=== PATIENT | male | born 1950 | race Caucasian/White ===

== ENCOUNTER 2024-03-13 08:04 | Day surgery (SDC) | payer OTHER, SELFPAY ==
--- NOTE | 2024-03-13 | PATH_ITS ---
[facility] Accession Number: [id number] No. of containers..02 Tissue . 01 Material submitted: . PART A: colon - ASCENDING POLYP PART B: rectum - RECTAL POLYP . 01 Diagnosis: A. ASCENDING COLON, POLYPECTOMY: Tubular adenoma. - B. RECTUM, POLYPECTOMY: Hyperplastic polyp. [facility] 03/17/2024 1550 Local . 01 Electronically signed: . Sue Ramon MD, Pathologist NPI- [id number] . 01 Gross description: . Part A: ASCENDING POLYP: Received in formalin is 1 fragment(s) of guzman, soft tissue measuring 0.5 x 0.3 x 0.3 cm submitted entirely in 1 cassette(s) Part B: RECTAL POLYP: Received in formalin is 1 fragment(s) of guzman, soft tissue measuring 0.2 x 0.2 x 0.2 cm submitted entirely in 1 cassette(s) /WIL 03/14/2024 2335 Local . 01 Pathologist provided ICD-10: Z12.11 . 01 CPT . 523658, 610649 Specimen Comment: A courtesy copy of this report has been sent to [phone] Performed at: [address] [facility] [address], [place], [place] [id number] MD Oziel Zamora MD Phone: [phone]
[2024-03-13 08:34] VITALS: BP 158/99; PULSE 106; RESP 16; TEMP 36.6; O2SAT 98
[2024-03-13 09:00] VITALS: BP 117/76; PULSE 97; RESP 18; TEMP 36.6; O2SAT 94
--- NOTE | 2024-03-13 09:15 | P.HP_ITS ---
History of Present Illness History of Present Illness Date Patient Seen: 03/13/24 Time Patient Seen: 09:15 Chief complaint: Screening Colonoscopy Narrative: Marco is a 73-year-old man who presents for a colonoscopy. His last one was 10 or 12 years ago. No family history of colon cancer. [facility] Medical History (Updated 03/13/24 @ 09:15 by Fareed Richards MD) Hx of renal calculi Hx of gastroesophageal reflux (GERD) Hx of low back pain Hx of chronic arthritis Hx of sleep apnea History of high cholesterol Hx of primary hypertension Surgical History (Updated 03/13/24 @ 08:42 by Jeanine Skelton RN) History of ankle surgery (~2000) History of back surgery (~2021) Hx of hernia repair (~2015) Social History Smoking Status: Former smoker alcohol intake: current Meds Home Medications and Allergies Home Medications Medication Instructions Recorded Confirmed Type sodium,potassium,mag sulfates 17.5 See Rx Instructions PO .COMPLEX 02/05/24 Rx gram-3.13 gram-1.6 gram oral soln #354 mL (Suprep Bowel Prep Kit) acetaminophen 500 mg capsule 1,000 mg PO QID PRN Pain (Scale 03/13/24 03/13/24 History Score 1-3) amlodipine 5 mg tablet 5 mg PO DAILY 03/13/24 03/13/24 History atorvastatin 40 mg tablet 40 mg PO DAILY 03/13/24 03/13/24 History fluticasone propionate 50 1 spray intranasal DAILY 03/13/24 03/13/24 History mcg/actuation nasal spray,suspension gabapentin 300 mg capsule 300 mg PO 03/13/24 History losartan 50 mg tablet 50 mg PO DAILY 03/13/24 03/13/24 History methocarbamol 500 mg tablet 500 - 1,000 mg PO Q6H PRN Muscle 03/13/24 03/13/24 History Spasm pantoprazole 40 mg tablet,delayed 40 mg PO DAILY 03/13/24 03/13/24 History release tamsulosin 0.4 mg capsule 0.4 mg PO BEDTIME 03/13/24 03/13/24 History tizanidine 2 mg tablet 4 mg PO BID 03/13/24 03/13/24 History trazodone 100 mg tablet 100 mg PO ONCE PM PRN insomnia 03/13/24 03/13/24 History Allergies Allergy/AdvReac Type Severity Reaction Status Date / Time No Known Drug Allergies Allergy Verified 03/13/24 08:42 Exam Vital Signs (past 8 hours): - 03/13/24 08:34 Temperature 97.8 F Pulse Rate 106 H Respiratory Rate 16 Blood Pressure 158/99 H Pulse Oximetry 98 Oxygen Delivery Method Room Air Oxygen Delivery Method Room Air Const General: No acute distress Resp Effort & Inspection: normal respiratory effort Assessment & Plan Assessment and plan (1) Colon cancer screening: Status: Acute Plan Colonoscopy Time-Based Coding :: [TOTAL MINUTES] spent with patient and on the chart (including review of chart, obtaining history, exam, reviewing outside data, placing orders, documenting exam and treatment plan, and counseling patient) on [DATE].
--- NOTE | 2024-03-13 09:56 | PM.OP.COLON ---
Operative Date/Time/Diagnoses Date of procedure: 03/13/24 Time of procedure: 09:56 Pre-op diagnosis: Colon cancer screening Post-op diagnosis: same Procedure & Clinicians Study performed: Colonoscopy Same procedure as scheduled: Yes Surgeon: Fareed Richards Procedure Notes Procedure in detail: Surgeon: Fareed Richards MD Anesthesia: Lainey Mata CRNA Procedure: The patient was brought to the endoscopy suite, placed in left lateral decubitus position. The patient was connected to monitoring devices. A time-out was performed. Sedation was administered. Once the patient was adequately sedated, a digital rectal exam was performed and was normal. The scope was then inserted and advanced to the cecum where the appendiceal orifice was identified and photographed. The scope was then slowly withdrawn over greater than 6 minutes. The mucosa was thoroughly inspected. There was a 7 mm polyp in the ascending colon removed with a cold snare. There was a 5 mm polyp in the rectum removed with a cold snare. The scope was retroflexed in the rectum. No other abnormalities were found. The scope was straightened and removed. The patient was awakened and brought to recovery. Scope withdrawal time: 12 minutes Sedation time: 16 minutes EBL: 3 mL Findings: Small polyps in the ascending colon and rectum Post-procedure Disposition: PACU
[2024-03-13 09:57] VITALS: BP 121/86; PULSE 86; RESP 15; TEMP 36.6; O2SAT 95
[2024-03-13 10:04] VITALS: BP 105/76; PULSE 89; RESP 16; TEMP 36.6; O2SAT 96
== END 2024-03-13 10:20 | disposition home or self-care (01) ==
PROVIDERS: Family Provider Urology; PCP Internal Medicine; Referring Provider Surgery; Visit Provider Surgery
PROC: 0DJD8ZZ Inspection of Lower Intestinal Tract, Via Natural or Artificial Opening Endoscopic (ICD-10-PCS; CPT 45378; principal; 2024-03-13 09:15)
DX: Z12.11 Encounter for screening for malignant neoplasm of colon (principal); D12.2 Benign neoplasm of ascending colon; K62.1 Rectal polyp
CPT/HCPCS: 45385; J2704

== ENCOUNTER 2024-08-25 16:11 | Inpatient (IN) | payer OTHER, SELFPAY ==
[2024-08-25] VITALS (19 sets, daily range): BP systolic 155–194; BP diastolic 100–124; PULSE 94–118; RESP 11–30; TEMP 36.5; O2SAT 94–99; BMI 27.3
--- NOTE | 2024-08-25 16:20 | PC.NURSE ---
Pt srrived to ED via [facility] for back pain, general malaise and burning with urination. Pt states that he was tx for UTI and took his entire course of abx but it still having sx of burning with urination, increased frequency and the feeling of not being able to empty his bladder completely. Pt supposed to see doctor today for back injections, but doctor did not want to do them because pt's bp elevated and pt not feeling well. Pt a&Ox4.
[2024-08-25 16:34] LABS: Appearance Urine UA CLEAR; Bilirubin Urine UA NEGATIVE (NEGATIVE); Color Urine UA YELLOW; Glucose Urine UA NEGATIVE (Negative); Ketones Urine UA NEGATIVE (NEGATIVE); Leukocyte Esterase Urine UA NEGATIVE (NEGATIVE); Nitrite Urine UA NEGATIVE (Negative); Occult Blood Urine UA NEGATIVE (Negative); Protein Urine UA NEGATIVE (Negative); Specific Gravity Urine UA 1.015 (1.000-1.035); Urobilinogen Urine UA 0.2 E.U./dL (0.2)
[2024-08-25 16:46] LABS: Bacteria Urine Occasional (0-1); RBC Urine 0-1/HPF (0-5/HPF); Squamous Epithelial Cell Urine 0-1 /HPF (0-5/HPF); Urine Volume 10mL (spun); WBC Urine 0-1/HPF (0-5/HPF)
[2024-08-25 16:47] LABS: Culture Indicated Urine Cult Not Indicated
--- NOTE | 2024-08-25 17:41 | PC.NURSE ---
Pt ambulated to bathroom independently and with steady gait. States that he does not feel well after ambulating. States that he feels dizzy and like he has the chills. Pt hypertensive and tachy with HR in 110s. A&Ox4. notified.
--- NOTE | 2024-08-25 17:46 | DI.CT.S_ITS ---
PROCEDURE: CT ABDOMEN PELVIS W CON INDICATIONS: abd pain, distension TECHNIQUE: After the administration of intravenous contrast, axial sections acquired from the lung bases to the pubic symphysis. Coronal and sagittal reformats were performed. For radiation dose reduction, the following was used: automated exposure control, adjustment of mA and/or kV according to patient size. COMPARISON: None. FINDINGS: Image quality: Diagnostic. Lower Chest: No significant findings. ABDOMEN: Liver: Focus of heterogeneous enhancement in the right dome. Multiple small hepatic cysts. Gallbladder: No radiopaque gallstones or wall thickening. Biliary ducts: No biliary dilation. Pancreas: No ductal dilation. Spleen: Size is within normal limits. Adrenal Glands: No adrenal nodules. Kidneys and Ureters: No hydronephrosis. Small nonobstructing kidney stones. Mid left kidney heterogeneous mass measuring 5.2 cm, (2/50). Stomach and Bowel: Diverticulosis. No diverticulitis identified. Normal appendix. No small bowel obstruction. Fluid-filled loops of small bowel. Stomach is within normal limits. Peritoneum: No abnormal intraperitoneal fluid. No free air. Ventral Wall: No significant ventral hernia. Abdominal Nodes: No retroperitoneal or mesenteric adenopathy by size criteria. Vessels: Abdominal aortic aneurysm measuring 4.9 cm, (4/53), previously 2.3 cm in 2014. PELVIS: Pelvic Organs: Prostatomegaly. Bladder: No bladder wall thickening. No stone. Pelvic Nodes: No enlarged lymph nodes. Miscellaneous: No inguinal hernias are seen. Hydroceles. Bones: No aggressive osseous abnormality. L3-L5 pedicle screw fixation with intervertebral body spacers. Multilevel DDD. IMPRESSION: 1. Fluid-filled loops of small bowel. This raises the possibility of an enteritis. No small bowel obstruction. No free fluid. 2. Mid left kidney mass measuring 5.2 cm. Consistent with renal cell carcinoma until proven otherwise. -Renal MRI may be helpful for further characterization. 3. Abdominal aortic aneurysm measuring 4.9 cm. Not present in 2014. -Recommend vascular surgery consultation. 4. Focus of heterogeneous enhancement at the right liver. This could represent a perfusion abnormality or hemangioma. Less likely metastatic disease. 5. Small nonobstructing kidney stones. Dictated by: Tho Huang M.D. on 08/25/2024 at 19:36 Approved by: Tho Huang M.D. on 08/25/2024 at 19:46
--- NOTE | 2024-08-25 17:48 | ED.GENADULT ---
HPI - General Adult <Jayda Kruger MD - Last Filed: 08/25/24 22:04> General Chief complaint: Urogenital-Male Stated complaint: Feels run down Time Seen by Provider: 08/25/24 17:45 Source: patient and EMS Mode of arrival: EMS History of Present Illness HPI narrative: Patient is a 73-year-old male with history of BILL, hypertension, hyperlipidemia, GERD, nephrolithiasis, presenting with abdominal pain, dysuria, and feeling generally unwell. Patient states that he has felt like maybe he has a fever although never actually has a temperature does also endorse some chills. He is endorsing nausea without vomiting. Has been eating and drinking normally. He states that he thought he passed a stone however continued to have abdominal discomfort and dysuria. Patient denies any chest pain or shortness of breath. Related Data Home Medications ?Medication ?Instructions ?Recorded ?Confirmed acetaminophen 500 mg capsule 1,000 mg PO QID PRN Pain (Scale 03/13/24 08/26/24 Score 1-3) atorvastatin 40 mg tablet 40 mg PO DAILY 03/13/24 08/26/24 fluticasone propionate 50 1 spray intranasal DAILY 03/13/24 08/26/24 mcg/actuation nasal spray,suspension gabapentin 300 mg capsule 600 mg PO BEDTIME 03/13/24 08/26/24 losartan 50 mg tablet 50 mg PO DAILY 03/13/24 08/26/24 methocarbamol 500 mg tablet 500 - 1,000 mg PO Q6H PRN Muscle 03/13/24 08/26/24 Spasm pantoprazole 40 mg tablet,delayed 40 mg PO DAILY 03/13/24 08/26/24 release tamsulosin 0.4 mg capsule 0.4 mg PO BEDTIME 03/13/24 08/26/24 tizanidine 2 mg tablet 4 mg PO BID 03/13/24 08/26/24 trazodone 100 mg tablet 100 mg PO ONCE PM PRN insomnia 03/13/24 08/26/24 Allergies Allergy/AdvReac Type Severity Reaction Status Date / Time No Known Drug Allergies Allergy Verified 08/26/24 08:36 Review of Systems <Jayda Kruger MD - Last Filed: 08/25/24 22:04> Constitutional Constitutional: Reports chills and Reports fatigue Eyes Eyes: Denies diplopia ENT Ears, Nose, Mouth, and Throat: Denies dizziness Cardiovascular Cardiovascular: Denies lightheadedness Gastrointestinal Gastrointestinal: Denies change in bowel habits Genitourinary Genitourinary: Reports difficulty urinating and Reports dysuria Musculoskeletal Musculoskeletal: Denies arthralgias Neurologic Neurologic: Denies dizziness Psychiatric Psychiatric: Denies suicidal ideation Endocrine Endocrine: Reports fatigue Patient History <Jayda Kruger MD - Last Filed: 08/25/24 22:04> Medical History (Updated 08/26/24 @ 01:19 by Chirag Bryant MD) Hx of renal calculi Hx of gastroesophageal reflux (GERD) Hx of low back pain Hx of chronic arthritis Hx of sleep apnea History of high cholesterol Hx of primary hypertension Surgical History (Updated 03/13/24 @ 08:42 by Jeanine Skelton RN) History of ankle surgery (~2000) History of back surgery (~2021) Hx of hernia repair (~2015) Social History household members: spouse Smoking Status: Former smoker alcohol intake: current Exam <Jayda Kruger MD - Last Filed: 08/25/24 22:04> Initial Vital Signs Initial Vital Signs: Vital Signs Temperature 97.7 F 08/25/24 16:13 Pulse Rate 94 H 08/25/24 16:13 Respiratory Rate 18 08/25/24 16:13 Blood Pressure 155/104 H 08/25/24 16:13 Pulse Oximetry 99 08/25/24 16:13 Oxygen Delivery Method Room Air 08/25/24 16:13 <Chirag Bryant MD - Last Filed: 08/26/24 15:21> Initial Vital Signs Initial Vital Signs: Vital Signs Temperature 97.7 F 08/25/24 16:13 Pulse Rate 94 H 08/25/24 16:13 Respiratory Rate 18 08/25/24 16:13 Blood Pressure 155/104 H 08/25/24 16:13 Pulse Oximetry 99 08/25/24 16:13 Oxygen Delivery Method Room Air 08/25/24 16:13 Course <Jayda Kruger MD - Last Filed: 08/25/24 22:04> Orders Ordered: Sodium Chloride (Normal Saline 0.9%) 1,000 mls @ 100 mls/hr IV CONT ZANE Last Admin: 08/26/24 08:46 Dose: 100 mls/hr Documented By: SHI Morphine Sulfate (Morphine 4 Mg/Ml Inj) 1 mg IV Q2HR PRN PRN Reason: Pain, Severe (7-10) Last Admin: 08/26/24 12:40 Dose: 1 mg Documented By: SONY Naloxone HCl (Naloxone 0.4 Mg/Ml Vial) 0.2 mg IV Q2MIN PRN PRN Reason: Opiate Reversal Ondansetron HCl (Ondansetron 4 Mg/2 Ml Inj) 4 mg IV Q4HR PRN PRN Reason: Nausea Last Admin: 08/26/24 12:40 Dose: 4 mg Documented By: SONY Oxycodone HCl (Oxycodone Ir 10 Mg Tablet) 10 mg PO Q3H PRN PRN Reason: Moderate pain (4-6) Discontinued Medications Acetaminophen (Acetaminophen 325 Mg Tablet) 650 mg PO NOW ONE Stop: 08/26/24 01:45 Last Admin: 08/26/24 01:46 Dose: 650 mg Documented By: NEISHA Dicyclomine HCl (Dicyclomine 10 Mg Capsule) 10 mg PO NOW ONE Stop: 08/25/24 21:21 Last Admin: 08/25/24 22:36 Dose: 10 mg Documented By: NEISHA Hydromorphone HCl (Hydromorphone 0.5 Mg Inj) 0.5 mg IV NOW ONE Stop: 08/25/24 21:16 Last Admin: 08/25/24 21:21 Dose: 0.5 mg Documented By: NIKITA Hydromorphone HCl (Hydromorphone 1 Mg Inj) 1 mg IV NOW ONE Stop: 08/26/24 07:27 Last Admin: 08/26/24 07:38 Dose: 1 mg Documented By: SHI Sodium Chloride (Normal Saline 0.9%) 1,000 mls @ 1,000 mls/hr IV BOLUS ONE Stop: 08/26/24 01:23 Last Infusion: 08/26/24 01:43 Dose: Infused Documented By: Admin: 08/26/24 00:41 Dose: 1,000 mls/hr Documented By: NEISHA Piperacillin Sod/Tazobactam (Sod 4.5 gm/ Sodium Chloride) 100 mls @ 200 mls/hr IV NOW ONE Stop: 08/26/24 08:00 Last Infusion: 08/26/24 09:23 Dose: Infused Documented By: Admin: 08/26/24 08:47 Dose: 200 mls/hr Documented By: SHI Ondansetron HCl (Ondansetron 4 Mg/2 Ml Inj) 4 mg IV NOW ONE Stop: 08/25/24 20:23 Last Admin: 08/25/24 20:31 Dose: 4 mg Documented By: NEISHA Ondansetron HCl (Ondansetron 4 Mg/2 Ml Inj) 4 mg IV NOW ONE Stop: 08/25/24 20:44 Last Admin: 08/25/24 20:55 Dose: 4 mg Documented By: NEISHA Ondansetron HCl (Ondansetron 4 Mg Odt Prepack) 1 bottle MISC DIRECTED ONE Stop: 08/26/24 01:20 Last Admin: 08/26/24 01:43 Dose: 1 bottle Documented By: NEISHA Vital Signs Vital signs: Vital Signs - 8 hr 08/26/24 00:00 08/26/24 00:00 08/26/24 00:20 Pulse Rate 105 H 105 H Respiratory Rate 13 12 Blood Pressure 163/99 H Pulse Oximetry 93 93 Oxygen Delivery Method 08/26/24 00:20 08/26/24 00:30 08/26/24 00:40 Pulse Rate 108 H Respiratory Rate 13 Blood Pressure 156/105 H 173/109 H Pulse Oximetry 96 Oxygen Delivery Method Room Air 08/26/24 00:40 08/26/24 01:00 08/26/24 01:00 Pulse Rate 103 H 98 H Respiratory Rate 12 14 Blood Pressure 187/118 H Pulse Oximetry 94 94 Oxygen Delivery Method Room Air 08/26/24 02:32 08/26/24 02:33 08/26/24 02:33 Pulse Rate 112 H 109 H Respiratory Rate 13 Blood Pressure 178/111 H Pulse Oximetry 97 Oxygen Delivery Method 08/26/24 02:40 08/26/24 02:40 08/26/24 03:00 Pulse Rate 109 H Respiratory Rate Blood Pressure 188/116 H 179/120 H Pulse Oximetry 95 Oxygen Delivery Method Room Air 08/26/24 03:00 08/26/24 03:14 08/26/24 03:14 Pulse Rate 115 H 130 H Respiratory Rate 19 26 H Blood Pressure 184/130 H Pulse Oximetry 96 97 Oxygen Delivery Method Room Air 08/26/24 03:15 08/26/24 03:15 08/26/24 03:16 Pulse Rate 119 H 125 H Respiratory Rate 24 23 Blood Pressure 184/125 H Pulse Oximetry 97 98 Oxygen Delivery Method 08/26/24 03:16 08/26/24 03:20 08/26/24 03:20 Pulse Rate 113 H Respiratory Rate 26 H Blood Pressure 178/124 H 181/114 H Pulse Oximetry 97 Oxygen Delivery Method 08/26/24 03:30 08/26/24 03:41 08/26/24 03:41 Pulse Rate 111 H 110 H Respiratory Rate 20 26 H Blood Pressure 204/129 H Pulse Oximetry 97 97 Oxygen Delivery Method 08/26/24 03:52 08/26/24 03:52 08/26/24 04:00 Pulse Rate 108 H Respiratory Rate 24 Blood Pressure 187/120 H 182/114 H Pulse Oximetry 97 Oxygen Delivery Method 08/26/24 04:00 08/26/24 04:33 08/26/24 05:00 Pulse Rate 106 H 101 H 100 H Respiratory Rate 26 H 13 Blood Pressure Pulse Oximetry 97 93 Oxygen Delivery Method 08/26/24 05:30 08/26/24 05:31 08/26/24 05:31 Pulse Rate 109 H 109 H Respiratory Rate 22 15 Blood Pressure 189/120 H Pulse Oximetry 93 95 Oxygen Delivery Method 08/26/24 06:00 08/26/24 06:00 08/26/24 06:30 Pulse Rate 105 H 105 H Respiratory Rate 14 15 Blood Pressure 182/117 H Pulse Oximetry 92 94 Oxygen Delivery Method 08/26/24 06:30 08/26/24 07:00 Pulse Rate 110 H Respiratory Rate 13 Blood Pressure 169/114 H Pulse Oximetry 96 Oxygen Delivery Method Room Air <Chirag Bryant MD - Last Filed: 08/26/24 15:21> Orders Ordered: Sodium Chloride (Normal Saline 0.9%) 1,000 mls @ 100 mls/hr IV CONT ZANE Last Admin: 08/26/24 08:46 Dose: 100 mls/hr Documented By: RLS Morphine Sulfate (Morphine 4 Mg/Ml Inj) 1 mg IV Q2HR PRN PRN Reason: Pain, Severe (7-10) Last Admin: 08/26/24 12:40 Dose: 1 mg Documented By: TLS Naloxone HCl (Naloxone 0.4 Mg/Ml Vial) 0.2 mg IV Q2MIN PRN PRN Reason: Opiate Reversal Ondansetron HCl (Ondansetron 4 Mg/2 Ml Inj) 4 mg IV Q4HR PRN PRN Reason: Nausea Last Admin: 08/26/24 12:40 Dose: 4 mg Documented By: SONY Oxycodone HCl (Oxycodone Ir 10 Mg Tablet) 10 mg PO Q3H PRN PRN Reason: Moderate pain (4-6) Discontinued Medications Acetaminophen (Acetaminophen 325 Mg Tablet) 650 mg PO NOW ONE Stop: 08/26/24 01:45 Last Admin: 08/26/24 01:46 Dose: 650 mg Documented By: NEISHA Dicyclomine HCl (Dicyclomine 10 Mg Capsule) 10 mg PO NOW ONE Stop: 08/25/24 21:21 Last Admin: 08/25/24 22:36 Dose: 10 mg Documented By: NEISHA Hydromorphone HCl (Hydromorphone 0.5 Mg Inj) 0.5 mg IV NOW ONE Stop: 08/25/24 21:16 Last Admin: 08/25/24 21:21 Dose: 0.5 mg Documented By: NIKITA Hydromorphone HCl (Hydromorphone 1 Mg Inj) 1 mg IV NOW ONE Stop: 08/26/24 07:27 Last Admin: 08/26/24 07:38 Dose: 1 mg Documented By: SHI Sodium Chloride (Normal Saline 0.9%) 1,000 mls @ 1,000 mls/hr IV BOLUS ONE Stop: 08/26/24 01:23 Last Infusion: 08/26/24 01:43 Dose: Infused Documented By: Admin: 08/26/24 00:41 Dose: 1,000 mls/hr Documented By: NEISHA Piperacillin Sod/Tazobactam (Sod 4.5 gm/ Sodium Chloride) 100 mls @ 200 mls/hr IV NOW ONE Stop: 08/26/24 08:00 Last Infusion: 08/26/24 09:23 Dose: Infused Documented By: Admin: 08/26/24 08:47 Dose: 200 mls/hr Documented By: SHI Ondansetron HCl (Ondansetron 4 Mg/2 Ml Inj) 4 mg IV NOW ONE Stop: 08/25/24 20:23 Last Admin: 08/25/24 20:31 Dose: 4 mg Documented By: NEISHA Ondansetron HCl (Ondansetron 4 Mg/2 Ml Inj) 4 mg IV NOW ONE Stop: 08/25/24 20:44 Last Admin: 08/25/24 20:55 Dose: 4 mg Documented By: NEISHA Ondansetron HCl (Ondansetron 4 Mg Odt Prepack) 1 bottle MISC DIRECTED ONE Stop: 08/26/24 01:20 Last Admin: 08/26/24 01:43 Dose: 1 bottle Documented By: NEISHA Vital Signs Vital signs: Vital Signs - 8 hr 08/26/24 00:00 08/26/24 00:00 08/26/24 00:20 Pulse Rate 105 H 105 H Respiratory Rate 13 12 Blood Pressure 163/99 H Pulse Oximetry 93 93 Oxygen Delivery Method 08/26/24 00:20 08/26/24 00:30 08/26/24 00:40 Pulse Rate 108 H Respiratory Rate 13 Blood Pressure 156/105 H 173/109 H Pulse Oximetry 96 Oxygen Delivery Method Room Air 08/26/24 00:40 08/26/24 01:00 08/26/24 01:00 Pulse Rate 103 H 98 H Respiratory Rate 12 14 Blood Pressure 187/118 H Pulse Oximetry 94 94 Oxygen Delivery Method Room Air 08/26/24 02:32 08/26/24 02:33 08/26/24 02:33 Pulse Rate 112 H 109 H Respiratory Rate 13 Blood Pressure 178/111 H Pulse Oximetry 97 Oxygen Delivery Method 08/26/24 02:40 08/26/24 02:40 08/26/24 03:00 Pulse Rate 109 H Respiratory Rate Blood Pressure 188/116 H 179/120 H Pulse Oximetry 95 Oxygen Delivery Method Room Air 08/26/24 03:00 08/26/24 03:14 08/26/24 03:14 Pulse Rate 115 H 130 H Respiratory Rate 19 26 H Blood Pressure 184/130 H Pulse Oximetry 96 97 Oxygen Delivery Method Room Air 08/26/24 03:15 08/26/24 03:15 08/26/24 03:16 Pulse Rate 119 H 125 H Respiratory Rate 24 23 Blood Pressure 184/125 H Pulse Oximetry 97 98 Oxygen Delivery Method 08/26/24 03:16 08/26/24 03:20 08/26/24 03:20 Pulse Rate 113 H Respiratory Rate 26 H Blood Pressure 178/124 H 181/114 H Pulse Oximetry 97 Oxygen Delivery Method 08/26/24 03:30 08/26/24 03:41 08/26/24 03:41 Pulse Rate 111 H 110 H Respiratory Rate 20 26 H Blood Pressure 204/129 H Pulse Oximetry 97 97 Oxygen Delivery Method 08/26/24 03:52 08/26/24 03:52 08/26/24 04:00 Pulse Rate 108 H Respiratory Rate 24 Blood Pressure 187/120 H 182/114 H Pulse Oximetry 97 Oxygen Delivery Method 08/26/24 04:00 08/26/24 04:33 08/26/24 05:00 Pulse Rate 106 H 101 H 100 H Respiratory Rate 26 H 13 Blood Pressure Pulse Oximetry 97 93 Oxygen Delivery Method 08/26/24 05:30 08/26/24 05:31 08/26/24 05:31 Pulse Rate 109 H 109 H Respiratory Rate 22 15 Blood Pressure 189/120 H Pulse Oximetry 93 95 Oxygen Delivery Method 08/26/24 06:00 08/26/24 06:00 08/26/24 06:30 Pulse Rate 105 H 105 H Respiratory Rate 14 15 Blood Pressure 182/117 H Pulse Oximetry 92 94 Oxygen Delivery Method 08/26/24 06:30 08/26/24 07:00 Pulse Rate 110 H Respiratory Rate 13 Blood Pressure 169/114 H Pulse Oximetry 96 Oxygen Delivery Method Room Air Medical Decision Making <Jayda Kruger MD - Last Filed: 08/25/24 22:04> Lab Data 08/26/24 04:00 08/26/24 04:00 Labs: Lab Results 08/25/24 08/25/24 08/25/24 Range/Units 16:21 17:58 18:57 WBC 11.6 H (4.5-11.0) X10^3/uL RBC 5.20 (4.5-5.9) X10^6/uL Hgb 16.0 (13.5-17.5) g/dL Hct 48.2 (41-53) % MCV 92.7 (80-100) fL MCH 30.7 (26-34) PG MCHC 33.2 (30-36) % RDW 14.6 (11.6-14.8) % Plt Count 296 (150-400) X10^3/uL Neut % (Auto) 74.3 (50-75) % Lymph % (Auto) 16.1 L (25-40) % [place] % (Auto) 7.4 (3-14) % Eos % (Auto) 1.7 L (2-4) % Baso % (Auto) 0.5 (0-2) % Neut # (Auto) 8600 H (1098-2843) /uL Lymph # (Auto) 1900 (9354-9252) /uL [place] # (Auto) 900 (0-900) /uL Eos # (Auto) 200 (0-450) /uL Baso # (Auto) 100 (0-100) /uL Sodium 139 (137-145) mmol/L Potassium 3.9 (3.4-5.1) mmol/L Chloride 105 (98-107) mmol/L Carbon Dioxide 21 L (22-32) mmol/L BUN 20 (9-20) mg/dL Creatinine 0.98 (0.66-1.25) mg/dL Estimated GFR > 60 (>60) mL/min BUN/Creatinine Ratio 20.4 (6-22) Glucose 104 H (70-99) mg/dL Lactate 1.2 (0.7-2.1) mmol/L Calcium 9.9 (8.4-10.2) mg/dL Magnesium 1.8 (1.6-2.3) mg/dL Total Bilirubin 0.4 (0.2-1.3) mg/dL AST 25 (17-59) IU/L ALT 17 (<50) IU/L Alkaline Phosphatase 76 (38-126) U/L Troponin I < 0.012 (0.01-0.034) ng/mL Total Protein 8.7 H (6.3-8.2) g/dL Albumin 4.7 (3.5-5.0) g/dL Globulin 4.0 (1.7-4.1) g/dL Albumin/Globulin Ratio 1.2 (1.0-2.8) Lipase (23-300) U/L TSH 2.73 (0.47-4.68) uIU/mL Urine Color Yellow Urine Appearance Clear Urine pH 7.0 (4.5-8.0) Ur Specific [place] 1.015 (1.000-1.035) Urine Protein Negative (Negative) Urine Glucose (UA) Negative (Negative) g/dL Urine Ketones Negative (NEGATIVE) Urine Occult Blood Negative (Negative) Urine Nitrate Negative (Negative) Urine Bilirubin Negative (NEGATIVE) Urine Urobilinogen 0.2 (0.2) E.U./dL Ur Leukocyte Esterase Negative (NEGATIVE) Urine RBC 0-1/hpf (0-5/HPF) Urine WBC 0-1/hpf (0-5/HPF) Ur Squamous Epith Cells 0-1 /hpf (0-5/HPF) Urine Bacteria Occasional (0-1) (None) Ur Culture Indicated? Cult not indicated Vol Urine Centrifuged 10ml (spun) Blood Type AB Positive Antibody Screen Negative 08/26/24 Range/Units 04:00 WBC 13.5 H (4.5-11.0) X10^3/uL RBC 5.16 (4.5-5.9) X10^6/uL Hgb 15.8 (13.5-17.5) g/dL Hct 47.8 (41-53) % MCV 92.7 (80-100) fL MCH 30.6 (26-34) PG MCHC 33.0 (30-36) % RDW 14.4 (11.6-14.8) % Plt Count 306 (150-400) X10^3/uL Neut % (Auto) 84.4 H (50-75) % Lymph % (Auto) 8.7 L (25-40) % [place] % (Auto) 6.0 (3-14) % Eos % (Auto) 0.3 L (2-4) % Baso % (Auto) 0.6 (0-2) % Neut # (Auto) 54684 H (7924-5147) /uL Lymph # (Auto) 1200 (6468-9112) /uL [place] # (Auto) 800 (0-900) /uL Eos # (Auto) 0 (0-450) /uL Baso # (Auto) 100 (0-100) /uL Sodium 137 (137-145) mmol/L Potassium 4.3 (3.4-5.1) mmol/L Chloride 107 (98-107) mmol/L Carbon Dioxide 18 L (22-32) mmol/L BUN 19 (9-20) mg/dL Creatinine 0.87 (0.66-1.25) mg/dL Estimated GFR > 60 (>60) mL/min BUN/Creatinine Ratio 21.8 (6-22) Glucose 148 H (70-99) mg/dL Lactate 1.8 (0.7-2.1) mmol/L Calcium 9.5 (8.4-10.2) mg/dL Magnesium (1.6-2.3) mg/dL Total Bilirubin 0.8 (0.2-1.3) mg/dL AST 25 (17-59) IU/L ALT 19 (<50) IU/L Alkaline Phosphatase 68 (38-126) U/L Troponin I < 0.012 (0.01-0.034) ng/mL Total Protein 8.4 H (6.3-8.2) g/dL Albumin 4.6 (3.5-5.0) g/dL Globulin 3.8 (1.7-4.1) g/dL Albumin/Globulin Ratio 1.2 (1.0-2.8) Lipase 131 (23-300) U/L TSH (0.47-4.68) uIU/mL Urine Color Urine Appearance Urine pH (4.5-8.0) Ur Specific [place] (1.000-1.035) Urine Protein (Negative) Urine Glucose (UA) (Negative) g/dL Urine Ketones (NEGATIVE) Urine Occult Blood (Negative) Urine Nitrate (Negative) Urine Bilirubin (NEGATIVE) Urine Urobilinogen (0.2) E.U./dL Ur Leukocyte Esterase (NEGATIVE) Urine RBC (0-5/HPF) Urine WBC (0-5/HPF) Ur Squamous Epith Cells (0-5/HPF) Urine Bacteria (None) Ur Culture Indicated? Vol Urine Centrifuged Blood Type Antibody Screen <Chirag Bryant MD - Last Filed: 08/26/24 15:21> Lab Data Lab results reviewed: Yes I reviewed the patient's lab results. Lab results narrative: White blood cell count 37381, hemoglobin 16, platelets 296,000. Glucose 104. BUN 20 with creatinine 0.98. Serum CO2 21 decreased. Electrolytes unremarkable. Liver functions normal. Lipase normal. Troponin negative unmeasurable. Urine negative today. Labs: Lab Results 08/25/24 08/25/24 08/25/24 Range/Units 16:21 17:58 18:57 WBC 11.6 H (4.5-11.0) X10^3/uL RBC 5.20 (4.5-5.9) X10^6/uL Hgb 16.0 (13.5-17.5) g/dL Hct 48.2 (41-53) % MCV 92.7 (80-100) fL MCH 30.7 (26-34) PG MCHC 33.2 (30-36) % RDW 14.6 (11.6-14.8) % Plt Count 296 (150-400) X10^3/uL Neut % (Auto) 74.3 (50-75) % Lymph % (Auto) 16.1 L (25-40) % [place] % (Auto) 7.4 (3-14) % Eos % (Auto) 1.7 L (2-4) % Baso % (Auto) 0.5 (0-2) % Neut # (Auto) 8600 H (2105-9675) /uL Lymph # (Auto) 1900 (8489-3445) /uL [place] # (Auto) 900 (0-900) /uL Eos # (Auto) 200 (0-450) /uL Baso # (Auto) 100 (0-100) /uL Sodium 139 (137-145) mmol/L Potassium 3.9 (3.4-5.1) mmol/L Chloride 105 (98-107) mmol/L Carbon Dioxide 21 L (22-32) mmol/L BUN 20 (9-20) mg/dL Creatinine 0.98 (0.66-1.25) mg/dL Estimated GFR > 60 (>60) mL/min BUN/Creatinine Ratio 20.4 (6-22) Glucose 104 H (70-99) mg/dL Lactate 1.2 (0.7-2.1) mmol/L Calcium 9.9 (8.4-10.2) mg/dL Magnesium 1.8 (1.6-2.3) mg/dL Total Bilirubin 0.4 (0.2-1.3) mg/dL AST 25 (17-59) IU/L ALT 17 (<50) IU/L Alkaline Phosphatase 76 (38-126) U/L Troponin I < 0.012 (0.01-0.034) ng/mL Total Protein 8.7 H (6.3-8.2) g/dL Albumin 4.7 (3.5-5.0) g/dL Globulin 4.0 (1.7-4.1) g/dL Albumin/Globulin Ratio 1.2 (1.0-2.8) Lipase (23-300) U/L TSH 2.73 (0.47-4.68) uIU/mL Urine Color Yellow Urine Appearance Clear Urine pH 7.0 (4.5-8.0) Ur Specific [place] 1.015 (1.000-1.035) Urine Protein Negative (Negative) Urine Glucose (UA) Negative (Negative) g/dL Urine Ketones Negative (NEGATIVE) Urine Occult Blood Negative (Negative) Urine Nitrate Negative (Negative) Urine Bilirubin Negative (NEGATIVE) Urine Urobilinogen 0.2 (0.2) E.U./dL Ur Leukocyte Esterase Negative (NEGATIVE) Urine RBC 0-1/hpf (0-5/HPF) Urine WBC 0-1/hpf (0-5/HPF) Ur Squamous Epith Cells 0-1 /hpf (0-5/HPF) Urine Bacteria Occasional (0-1) (None) Ur Culture Indicated? Cult not indicated Vol Urine Centrifuged 10ml (spun) Blood Type AB Positive Antibody Screen Negative 08/26/24 Range/Units 04:00 WBC 13.5 H (4.5-11.0) X10^3/uL RBC 5.16 (4.5-5.9) X10^6/uL Hgb 15.8 (13.5-17.5) g/dL Hct 47.8 (41-53) % MCV 92.7 (80-100) fL MCH 30.6 (26-34) PG MCHC 33.0 (30-36) % RDW 14.4 (11.6-14.8) % Plt Count 306 (150-400) X10^3/uL Neut % (Auto) 84.4 H (50-75) % Lymph % (Auto) 8.7 L (25-40) % [place] % (Auto) 6.0 (3-14) % Eos % (Auto) 0.3 L (2-4) % Baso % (Auto) 0.6 (0-2) % Neut # (Auto) 64226 H (2673-7427) /uL Lymph # (Auto) 1200 (5461-7254) /uL [place] # (Auto) 800 (0-900) /uL Eos # (Auto) 0 (0-450) /uL Baso # (Auto) 100 (0-100) /uL Sodium 137 (137-145) mmol/L Potassium 4.3 (3.4-5.1) mmol/L Chloride 107 (98-107) mmol/L Carbon Dioxide 18 L (22-32) mmol/L BUN 19 (9-20) mg/dL Creatinine 0.87 (0.66-1.25) mg/dL Estimated GFR > 60 (>60) mL/min BUN/Creatinine Ratio 21.8 (6-22) Glucose 148 H (70-99) mg/dL Lactate 1.8 (0.7-2.1) mmol/L Calcium 9.5 (8.4-10.2) mg/dL Magnesium (1.6-2.3) mg/dL Total Bilirubin 0.8 (0.2-1.3) mg/dL AST 25 (17-59) IU/L ALT 19 (<50) IU/L Alkaline Phosphatase 68 (38-126) U/L Troponin I < 0.012 (0.01-0.034) ng/mL Total Protein 8.4 H (6.3-8.2) g/dL Albumin 4.6 (3.5-5.0) g/dL Globulin 3.8 (1.7-4.1) g/dL Albumin/Globulin Ratio 1.2 (1.0-2.8) Lipase 131 (23-300) U/L TSH (0.47-4.68) uIU/mL Urine Color Urine Appearance Urine pH (4.5-8.0) Ur Specific [place] (1.000-1.035) Urine Protein (Negative) Urine Glucose (UA) (Negative) g/dL Urine Ketones (NEGATIVE) Urine Occult Blood (Negative) Urine Nitrate (Negative) Urine Bilirubin (NEGATIVE) Urine Urobilinogen (0.2) E.U./dL Ur Leukocyte Esterase (NEGATIVE) Urine RBC (0-5/HPF) Urine WBC (0-5/HPF) Ur Squamous Epith Cells (0-5/HPF) Urine Bacteria (None) Ur Culture Indicated? Vol Urine Centrifuged Blood Type Antibody Screen Imaging Data CT scan - abdomen/pelvis: Radiologist's Impression: Close Abdomen/Pelvis CT (Signed) Tho Huang - 08/25/24 Launch?[address] [address] [address] Scan Report Signed Patient: Marco Greenberg MR#: [id number] : 1950 Acct:[id number] Age/Sex: 73 / M Date of Service: 08/25/24 Loc: ED Accession Number: [id number] Procedure: CT abdomen pelvis w con Ordering Provider: Jayda rKuger MD PROCEDURE: CT ABDOMEN PELVIS W CON INDICATIONS: abd pain, distension TECHNIQUE: After the administration of intravenous contrast, axial sections acquired from the lung bases to the pubic symphysis. Coronal and sagittal reformats were performed. For radiation dose reduction, the following was used: automated exposure control, adjustment of mA and/or kV according to patient size. COMPARISON: None. FINDINGS: Image quality: Diagnostic. Lower Chest: No significant findings. ABDOMEN: Liver: Focus of heterogeneous enhancement in the right dome. Multiple small hepatic cysts. Gallbladder: No radiopaque gallstones or wall thickening. Biliary ducts: No biliary dilation. Pancreas: No ductal dilation. Spleen: Size is within normal limits. Adrenal Glands: No adrenal nodules. Kidneys and Ureters: No hydronephrosis. Small nonobstructing kidney stones. Mid left kidney heterogeneous mass measuring 5.2 cm, (2/50). Stomach and Bowel: Diverticulosis. No diverticulitis identified. Normal appendix. No small bowel obstruction. Fluid-filled loops of small bowel. Stomach is within normal limits. Peritoneum: No abnormal intraperitoneal fluid. No free air. Ventral Wall: No significant ventral hernia. Abdominal Nodes: No retroperitoneal or mesenteric adenopathy by size criteria. Vessels: Abdominal aortic aneurysm measuring 4.9 cm, (4/53), previously 2.3 cm in 2014. PELVIS: Pelvic Organs: Prostatomegaly. Bladder: No bladder wall thickening. No stone. Pelvic Nodes: No enlarged lymph nodes. Miscellaneous: No inguinal hernias are seen. Hydroceles. Bones: No aggressive osseous abnormality. L3-L5 pedicle screw fixation with intervertebral body spacers. Multilevel DDD. IMPRESSION: 1. Fluid-filled loops of small bowel. This raises the possibility of an enteritis. No small bowel obstruction. No free fluid. 2. Mid left kidney mass measuring 5.2 cm. Consistent with renal cell carcinoma until proven otherwise. -Renal MRI may be helpful for further characterization. 3. Abdominal aortic aneurysm measuring 4.9 cm. Not present in 2014. -Recommend vascular surgery consultation. 4. Focus of heterogeneous enhancement at the right liver. This could represent a perfusion abnormality or hemangioma. Less likely metastatic disease. 5. Small nonobstructing kidney stones. Dictated by: Tho Huang M.D. on 08/25/2024 at 19:36 Approved by: Tho Huang M.D. on 08/25/2024 at 19:46 ECG Data Attestation: I personally reviewed and interpreted this ECG as follows: Interpretation: Normal sinus rhythm with rate of 96, no obvious ST segment elevation or depression changes. NC 174, QRS 84, QTC 457. 2130, normal sinus rhythm with rate of 95. No obvious ST segment elevation or depression changes. NC 168, QRS 72, QTC 434. MDM Narrative Medical decision making narrative: 08/25/24, Manny Nogueira. Singout from Dr Kruger. 73-year-old male with generalized fatigue complaints, history of renal stones, has some dysuria, afebrile, sirs screen negative on triage. Slight sinus tachycardia noted on vitals. EKG, troponin, CBC, chemistries, urinalysis ordered. CT abdomen and pelvis had been ordered. Assumed care. Additional history from me. Patient reports multiple visits at [facility] for abdominal pain, in July had kidney stone by CT scan, recalls abdominal aneurysm mentioned at that time that was bigger than some remote comparison study, was scheduled for surgical removal with Urology, in fact went to surgery, no stone was confirmed, had apparently pass the stone. He presented again to [facility] in the last couple of weeks, recalls another CT scan showing the same abdominal aortic aneurysm, was diagnosed with urine infection, took 10 day course of antibiotics completed on Sunday 3 days ago. Outside records review. CT report from [facility] on 08/11/2024. Impressions: ?no hydronephrosis or obstructing renal stone. Nonobstructing bilateral renal stones as above. Stable infrarenal abdominal aortic aneurysm measuring 4.8 cm. Vascular surgery consultation is recommended if not previously obtained. Diverticulosis without evidence of acute diverticulitis.. See report. Initial labs: White blood cell count 56326, hemoglobin 16, platelets 296,000. Glucose 104. BUN 20 with creatinine 0.98. Serum CO2 21 decreased. Electrolytes unremarkable. Liver functions normal. Lipase normal. Troponin negative unmeasurable. Urine negative today. CT abdomen and pelvis today. Impressions: ?Fluid-filled loops of small bowel. This raises possibility of an enteritis. No small bowel obstruction. No free fluid. Mid left kidney mass measuring 5.2 cm. Consistent with renal cell carcinoma improved through the otherwise. Renal MRI may be beneficial for further characterization. Abdominal aortic aneurysm measuring 4.9 cm. Not present in 2013. Recommended vascular surgery consultation. Focus of heterogeneous enhancement at the right liver. This could represent a perfusion abnormality or hemangioma. Less likely metastatic disease. Small nonobstructing kidney stones.? see radiology report. Patient having abdominal pain again. IV Dilaudid. Still nauseated, repeat dose IV Zofran. CT aortic aneurysm similar range size on CT scan compared with recent [place] study. Enteritis changes noted. We will add oral Bentyl. Patient significantly improved after Dilaudid and oral Bentyl. Now ambulatory, went to the bathroom. Patient informed about aortic aneurysm change, follow up with vascular surgery. Patient informed about suspected kidney mass unclear etiology, follow up with his urologist advised. History of kidney stones, advised to follow up with his urologist. Regarding enteritis changes this should be self-limited, consider further Bentyl for antispasm symptomatic control, prescription sent to his pharmacy to use if needed. Patient was planned to be discharged with prescription for further Bentyl sent to his pharmacy when he had increased severe abdominal discomfort once again. Repeat labs sent. Repeat EKG showed sinus tachycardia without obvious ischemic changes. CT angio chest abdomen and pelvis ordered. CT angiogram showed infrarenal abdominal aortic aneurysm once again at same 4.9 cm diameter without rupture or leak. Left kidney lesion again noted. Otherwise no acute changes obvious. See radiology report. 0545, case discussed with hospitalist Dr. Schultz who refused to admit the patient due to downtime, stating that he could not write orders. Will hold until change of shift to discuss with daysnvft hospitalist. 0700, case discussed with hospitalist Dr. Garcia who accepts patient for admission. Discharge Plan Departure Patient Disposition: Admitted as Observation Clinical Impression: Enteritis, Abdominal aortic aneurysm, Kidney stones, Kidney mass Admit Date/Time: 08/26/24 07:25 Admit Provider: Octavio Garcia
--- NOTE | 2024-08-25 18:09 | EKG_ITS ---
[facility] [address], [place] [address] Test Date: 2024-08-25 Pat Name: Marco Greenberg Department: [facility] Room: Gender: Male Computer Technology Trainer: KEENA : 1950 Requested By: Order Number: [id number] Reading MD: Baldemar Argueta Measurements Intervals [place] Rate: 96 P: 31 [place]: 174 QRS: 48 QRSD: 84 T: 15 QT: 362 QTc: 457 Interpretive Statements Normal sinus rhythm Electronically Signed On 08-28-2024 17:11:24 PDT by Baldemar Argueta
[2024-08-25 18:14] LABS: Add Manual Diff / Slide Review NO; Basophils Absolute Auto 100 /uL (0-100); Basophils Percent Auto 0.5 % (0-2); Eosinophils Absolute Auto 200 /uL (0-450); Eosinophils Percent Auto 1.7 % (2-4); Hematocrit 48.2 % (41-53); Lymphocytes Absolute Auto 1900 /uL (1100-4500); Lymphocytes Percent Auto 16.1 % (25-40); Mean Corpuscular HGB Conc 33.2 % (30-36); Mean Corpuscular Hemoglobin 30.7 PG (26-34); Mean Corpuscular Volume 92.7 fL (80-100); Monocytes Absolute Auto 900 /uL (0-900); Monocytes Percent Auto 7.4 % (3-14); Neutrophils Absolute Auto 8600 /uL (1500-7000); Neutrophils Percent Auto 74.3 % (50-75); Platelet Count 296 X10^3/uL (150-400); Red Cell Distribution Width 14.6 % (11.6-14.8); White Blood Cell Count 11.6 X10^3/uL (4.5-11.0)
[2024-08-25 18:21] LABS: Alanine Aminotransferase 17 IU/L (<50); Albumin 4.7 g/dL (3.5-5.0); Albumin Globulin Ratio 1.2 (1.0-2.8); Alkaline Phosphatase 76 U/L (38-126); Aspartate Aminotransferase 25 IU/L (17-59); BUN Creatinine Ratio 20.4 (6-22); Bilirubin Total 0.4 mg/dL (0.2-1.3); Blood Urea Nitrogen 20 mg/dL (9-20); Calcium 9.9 mg/dL (8.4-10.2); Carbon Dioxide 21 mmol/L (22-32); Chloride 105 mmol/L (98-107); Estimated Glomerular Filt Rate > 60 mL/min (>60); Glucose 104 mg/dL (70-99); HEMOLYSIS 15 (0-50); Lactate (Lactic Acid) 1.2 mmol/L (0.7-2.1); Magnesium 1.8 mg/dL (1.6-2.3); Potassium 3.9 mmol/L (3.4-5.1); Sodium 139 mmol/L (137-145); Total Protein 8.7 g/dL (6.3-8.2)
[2024-08-25 18:33] LABS: Troponin I < 0.012 ng/mL (0.01-0.034)
[2024-08-25 18:52] LABS: Thyroid Stimulating Hormone 2.73 uIU/mL (0.47-4.68)
[2024-08-25] MEDS: ONDANSETRON 4 MG/2 ML INJ IV ×2 (20:31→20:55)
[2024-08-25] MEDS: HYDROMORPHONE 0.5 MG INJ IV (21:21)
--- NOTE | 2024-08-25 21:30 | EKG_ITS ---
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
--- NOTE | 2024-08-25 21:36 | PC.NURSE ---
Pt became very distressed, c/o severe pain to abd that started after palpation. RR noted 35-40, pt states hard to get a breath. O2 sats 95%. Skin P/W/D. Pt agitated, squirming in bed. Dr Bryant notified of pt condition, plan to medicate with dilaudid and reassess. Pt reports relief after dilaudid, now resting in bed on R side.
[2024-08-25] MEDS: DICYCLOMINE 10 MG CAPSULE PO (22:36)
[2024-08-26] VITALS (36 sets, daily range): BP systolic 156–204; BP diastolic 99–132; PULSE 96–130; RESP 12–26; TEMP 36.3–36.6; O2SAT 92–100; BMI 27.3
[2024-08-26] MEDS: SODIUM CHLORIDE 0.9% 1,000 ML 1000 ML IV (00:41)
[2024-08-26] MEDS: ACETAMINOPHEN 325 MG TABLET 650 MG PO (01:46)
--- NOTE | 2024-08-26 03:50 | EKG_ITS ---
[address] [address] Test Date: 2024-08-26 Pat Name: Marco Greenberg Department: Room: 220 Gender: Male Manager Heart: : 1950 Requested By: Order Number: [id number] Reading MD: Baldemar Argueta Measurements Intervals [place] Rate: 108 P: 35 [place]: 162 QRS: 51 QRSD: 74 T: 30 QT: 334 QTc: 447 Interpretive Statements Sinus tachycardia Electronically Signed On 08-28-2024 17:12:04 PDT by Baldemar Argueta
--- NOTE | 2024-08-26 07:30 | PC.NURSE ---
Back charting: pt walked to the [facility] and back to his room. Became extremely short of breath, tachycardic 10 HR and very hypertensive, see vitals in chart. Pt kept repeating I don't feel good, i don't' feel good. Unable to specify what was going on. Dr. Bryant notified immediately, new orders in for labs and EKG. After lying down for 30 min, pt was still tachycardic HR 112. Dr. Bryant aware.
[2024-08-26] MEDS: HYDROMORPHONE 1 MG INJ IV (07:38)
--- NOTE | 2024-08-26 08:05 | PM.HP.1 ---
History of Present Illness History of Present Illness Date Patient Seen: 08/26/24 Time Patient Seen: 08:05 Chief complaint: Severe abdominal pain mesenteric signs Narrative: Chief complaint: Severe abdominal pain episodic associated with peritoneal tenderness findings of enteritis on CT consider mesenteric vein thrombosis History of present illness: 73-year-old male 1 month ago had abdominal pain imaging demonstrated kidney stone was referred to Urology kidney stone was not present obstructing apparently passed however patient continued to have recurrent episodes of severe abdominal pain with recurrent workups and multiple images of the abdomen. These images demonstrated renal mass abdominal aortic aneurysm 4.89 cm. Patient was evaluated in the emergency department 08/25 with limited findings and improved symptoms with Bentyl ready to be discharged home and had a sudden escalation of severe abdominal pain accompanied by feeling feverish with rigors and chills. Findings on CT are as follows: 1. Fluid-filled loops of small bowel. This raises the possibility of an enteritis. No small bowel obstruction. No free fluid. 2. Mid left kidney mass measuring 5.2 cm. Consistent with renal cell carcinoma until proven otherwise. -Renal MRI may be helpful for further characterization. 3. Abdominal aortic aneurysm measuring 4.9 cm. Not present in 2013. -Recommend vascular surgery consultation. 4. Focus of heterogeneous enhancement at the right liver. This could represent a perfusion abnormality or hemangioma. Less likely metastatic disease. 5. Small nonobstructing kidney stones. White count 11.6 with 74% neutrophils Comprehensive metabolic unremarkable urinalysis normal Review of systems: No headache diplopia No chest pains palpitations shortness for breath wheezes No urinary symptoms No paresthesia paresis Physical exam: Hypotensive tachycardic flushed and tremulous elderly male in obvious severe pain HEENT unremarkable Unlabored respirations Abdomen distended nontender to deep palpation however significant pain with jiggling that is felt deep in his abdomen Extremities no edema Assessment and plan: Abdominal pain that seems to be mesenteric in character, findings on CT suggest enteritis consider viral or bacterial enteritis although patient has not had any diarrhea nausea vomiting. Also consider mesenteric vein thrombosis or arterial insufficiency of splanchnic perfusion Admit for of preservation placing IV fluids blood cultures looking for Gram-negative empiric Zosyn Generous narcotic analgesia for suspected mesenteric vein thrombosis (pain out of proportion to findings) CT angio of the abdomen looking for mesenteric vein thrombosis Incidental finding of abdominal aortic aneurysm without signs of dissection on CT imaging, doubt this is culprit but we will need to be followed by vascular surgery There may be arterial insufficiency of mesenteric arteries Incidental finding of renal mass suspicious for renal cell carcinoma We will need follow-up with Urology DVT prophylaxis with SCDs only Code status: Full Code [facility] Medical History (Updated 08/26/24 @ 01:19 by Chirag Bryant MD) Hx of renal calculi Hx of gastroesophageal reflux (GERD) Hx of low back pain Hx of chronic arthritis Hx of sleep apnea History of high cholesterol Hx of primary hypertension Surgical History (Updated 03/13/24 @ 08:42 by Jeanine Skelton RN) History of ankle surgery (~2000) History of back surgery (~2021) Hx of hernia repair (~2015) Social History alcohol intake: current Meds Home Medications and Allergies Home Medications ?Medication ?Instructions ?Recorded ?Confirmed ?Type sodium,potassium,mag sulfates 17.5 See Rx Instructions PO .COMPLEX 02/05/24 Rx gram-3.13 gram-1.6 gram oral soln #354 mL (Suprep Bowel Prep Kit) acetaminophen 500 mg capsule 1,000 mg PO QID PRN Pain (Scale 03/13/24 03/13/24 History Score 1-3) amlodipine 5 mg tablet 5 mg PO DAILY 03/13/24 03/13/24 History atorvastatin 40 mg tablet 40 mg PO DAILY 03/13/24 03/13/24 History fluticasone propionate 50 1 spray intranasal DAILY 03/13/24 03/13/24 History mcg/actuation nasal spray,suspension gabapentin 300 mg capsule 300 mg PO 03/13/24 History losartan 50 mg tablet 50 mg PO DAILY 03/13/24 03/13/24 History methocarbamol 500 mg tablet 500 - 1,000 mg PO Q6H PRN Muscle 03/13/24 03/13/24 History Spasm pantoprazole 40 mg tablet,delayed 40 mg PO DAILY 03/13/24 03/13/24 History release tamsulosin 0.4 mg capsule 0.4 mg PO BEDTIME 03/13/24 03/13/24 History tizanidine 2 mg tablet 4 mg PO BID 03/13/24 03/13/24 History trazodone 100 mg tablet 100 mg PO ONCE PM PRN insomnia 03/13/24 03/13/24 History dicyclomine 20 mg tablet 20 mg PO BID #10 tabs 08/26/24 Rx Allergies Allergy/AdvReac Type Severity Reaction Status Date / Time No Known Drug Allergies Allergy Verified 03/13/24 08:42 Exam Vital Signs (past 8 hours): - 08/26/24 00:20 08/26/24 00:20 08/26/24 00:30 Pulse Rate 105 H 108 H Respiratory Rate 12 13 Blood Pressure 156/105 H Pulse Oximetry 93 96 Oxygen Delivery Method Room Air Oxygen Flow Rate 08/26/24 00:40 08/26/24 00:40 08/26/24 01:00 Pulse Rate 103 H 98 H Respiratory Rate 12 14 Blood Pressure 173/109 H Pulse Oximetry 94 94 Oxygen Delivery Method Room Air Oxygen Flow Rate 08/26/24 01:00 08/26/24 02:32 08/26/24 02:33 Pulse Rate 112 H 109 H Respiratory Rate 13 Blood Pressure 187/118 H Pulse Oximetry 97 Oxygen Delivery Method Oxygen Flow Rate 08/26/24 02:33 08/26/24 02:40 08/26/24 02:40 Pulse Rate 109 H Respiratory Rate Blood Pressure 178/111 H 188/116 H Pulse Oximetry 95 Oxygen Delivery Method Room Air Oxygen Flow Rate 08/26/24 03:00 08/26/24 03:00 08/26/24 03:14 Pulse Rate 115 H 130 H Respiratory Rate 19 26 H Blood Pressure 179/120 H Pulse Oximetry 96 97 Oxygen Delivery Method Room Air Oxygen Flow Rate 08/26/24 03:14 08/26/24 03:15 08/26/24 03:15 Pulse Rate 119 H Respiratory Rate 24 Blood Pressure 184/130 H 184/125 H Pulse Oximetry 97 Oxygen Delivery Method Oxygen Flow Rate 08/26/24 03:16 08/26/24 03:16 08/26/24 03:20 Pulse Rate 125 H 113 H Respiratory Rate 23 26 H Blood Pressure 178/124 H Pulse Oximetry 98 97 Oxygen Delivery Method Oxygen Flow Rate 08/26/24 03:20 08/26/24 03:30 08/26/24 03:41 Pulse Rate 111 H 110 H Respiratory Rate 20 26 H Blood Pressure 181/114 H Pulse Oximetry 97 97 Oxygen Delivery Method Oxygen Flow Rate 08/26/24 03:41 08/26/24 03:52 08/26/24 03:52 Pulse Rate 108 H Respiratory Rate 24 Blood Pressure 204/129 H 187/120 H Pulse Oximetry 97 Oxygen Delivery Method Oxygen Flow Rate 08/26/24 04:00 08/26/24 04:00 08/26/24 04:33 Pulse Rate 106 H 101 H Respiratory Rate 26 H Blood Pressure 182/114 H Pulse Oximetry 97 Oxygen Delivery Method Oxygen Flow Rate 08/26/24 05:00 08/26/24 05:30 08/26/24 05:31 Pulse Rate 100 H 109 H 109 H Respiratory Rate 13 22 15 Blood Pressure Pulse Oximetry 93 93 95 Oxygen Delivery Method Oxygen Flow Rate 08/26/24 05:31 08/26/24 06:00 08/26/24 06:00 Pulse Rate 105 H Respiratory Rate 14 Blood Pressure 189/120 H 182/117 H Pulse Oximetry 92 Oxygen Delivery Method Oxygen Flow Rate 08/26/24 06:30 08/26/24 06:30 08/26/24 07:00 Pulse Rate 105 H 110 H Respiratory Rate 15 13 Blood Pressure 169/114 H Pulse Oximetry 94 96 Oxygen Delivery Method Room Air Oxygen Flow Rate 08/26/24 07:30 08/26/24 07:30 Pulse Rate 108 H Respiratory Rate 15 Blood Pressure 176/103 H Pulse Oximetry 97 Oxygen Delivery Method Nasal Cannula Oxygen Flow Rate 2 Oxygen Delivery Method Nasal Cannula Oxygen Flow Rate 2 Objective Labs 08/25/24 17:58 08/25/24 17:58 Labs: Laboratory Results - last 24 hr 08/25/24 08/25/24 08/25/24 16:21 17:58 18:57 WBC 11.6 H RBC 5.20 Hgb 16.0 Hct 48.2 MCV 92.7 MCH 30.7 MCHC 33.2 RDW 14.6 Plt Count 296 Neut % (Auto) 74.3 Lymph % (Auto) 16.1 L [place] % (Auto) 7.4 Eos % (Auto) 1.7 L Baso % (Auto) 0.5 Neut # (Auto) 8600 H Lymph # (Auto) 1900 Bath # (Auto) 900 Eos # (Auto) 200 Baso # (Auto) 100 Sodium 139 Potassium 3.9 Chloride 105 Carbon Dioxide 21 L BUN 20 Creatinine 0.98 Estimated GFR > 60 BUN/Creatinine Ratio 20.4 Glucose 104 H Lactate 1.2 Calcium 9.9 Magnesium 1.8 Total Bilirubin 0.4 AST 25 ALT 17 Alkaline Phosphatase 76 Troponin I < 0.012 Total Protein 8.7 H Albumin 4.7 Globulin 4.0 Albumin/Globulin Ratio 1.2 TSH 2.73 Urine Color Yellow Urine Appearance Clear Urine pH 7.0 Ur Specific [place] 1.015 Urine Protein Negative Urine Glucose (UA) Negative Urine Ketones Negative Urine Occult Blood Negative Urine Nitrate Negative Urine Bilirubin Negative Urine Urobilinogen 0.2 Ur Leukocyte Esterase Negative Urine RBC 0-1/hpf Urine WBC 0-1/hpf Ur Squamous Epith Cells 0-1 /hpf Urine Bacteria Occasional (0-1) Ur Culture Indicated? Cult not indicated Vol Urine Centrifuged 10ml (spun) Blood Type AB Positive Antibody Screen Negative Assessment & Plan Time-Based Coding :: 55 minutes spent with patient and on the chart (including review of chart, obtaining history, exam, reviewing outside data, placing orders, documenting exam and treatment plan, and counseling patient). Quality MIPS - Admit I confirm the patient?s Advance Care Plan is present, Code status is documented, Surrogate decision maker is in patient?s record [If Yes, STOP here]: Yes MIPS - Meds 'Current medications' to include all prescriptions, [id number] products, herbals, cannabis/cannabidiol products, and vitamin/mineral/dietary (nutritional) supplements. I have utilized all available resources to obtain, update, or review the patient?s current medications. [If Yes, STOP here]: Yes
[2024-08-26 08:12] LABS: Add Manual Diff / Slide Review NO; Basophils Absolute Auto 100 /uL (0-100); Basophils Percent Auto 0.6 % (0-2); Eosinophils Absolute Auto 0 /uL (0-450); Eosinophils Percent Auto 0.3 % (2-4); Hematocrit 47.8 % (41-53); Hemoglobin 15.8 g/dL (13.5-17.5); Lymphocytes Absolute Auto 1200 /uL (1100-4500); Lymphocytes Percent Auto 8.7 % (25-40); Mean Corpuscular Hemoglobin 30.6 PG (26-34); Mean Corpuscular Volume 92.7 fL (80-100); Monocytes Absolute Auto 800 /uL (0-900); Neutrophils Absolute Auto 11400 /uL (1500-7000); Neutrophils Percent Auto 84.4 % (50-75); Platelet Count 306 X10^3/uL (150-400); Red Blood Cell Count 5.16 X10^6/uL (4.5-5.9); Red Cell Distribution Width 14.4 % (11.6-14.8); White Blood Cell Count 13.5 X10^3/uL (4.5-11.0)
[2024-08-26 08:13] LABS: Alanine Aminotransferase 19 IU/L (<50); Albumin 4.6 g/dL (3.5-5.0); Albumin Globulin Ratio 1.2 (1.0-2.8); Alkaline Phosphatase 68 U/L (38-126); Aspartate Aminotransferase 25 IU/L (17-59); BUN Creatinine Ratio 21.8 (6-22); Bilirubin Total 0.8 mg/dL (0.2-1.3); Blood Urea Nitrogen 19 mg/dL (9-20); Calcium 9.5 mg/dL (8.4-10.2); Carbon Dioxide 18 mmol/L (22-32); Chloride 107 mmol/L (98-107); Estimated Glomerular Filt Rate > 60 mL/min (>60); Globulin 3.8 g/dL (1.7-4.1); Glucose 148 mg/dL (70-99); HEMOLYSIS 24 (0-50); Lipase 131 U/L (23-300); Potassium 4.3 mmol/L (3.4-5.1); Sodium 137 mmol/L (137-145); Total Protein 8.4 g/dL (6.3-8.2); Troponin I < 0.012 ng/mL (0.01-0.034)
--- NOTE | 2024-08-26 08:19 | DI.CT.S_ITS ---
PROCEDURE: CT ANGIO CHEST ABDOMEN PELVIS INDICATIONS: Tachycardia, abdomen pain TECHNIQUE: Precontrast 5 mm thick sections acquired from the lung apices to the iliac crests. After the administration of intravenous contrast, 2.5 mm thick sections again acquired from the lung apices to the iliac crests. Maximum intensity projection (MIP) oblique sagittal and coronal reformats were then acquired. For radiation dose reduction, the following was used: automated exposure control. COMPARISON: [facility], CT, CT ABDOMEN PELVIS W CON, 08/25/2024, 18:41. FINDINGS: Image quality: Diagnostic Lungs and pleura: Basal atelectasis and possible scarring. No dense airspace disease or pleural effusions. Mediastinum, heart, and esophagus: No central pulmonary embolism. Coronary calcifications. Nonspecific mild distal wall thickening of the esophagus. Mild calcifications involving the aorta and its branches. Normal heart size. No pathologic lymph nodes by size criteria. No intramural hematoma. No aortic dissection identified. Chest wall and thyroid: Unremarkable Liver: Probable 1.7 cm segment 8 hypervascular liver lesion. Scattered cysts. Subcentimeter hypoattenuating liver lesions are too small to characterize, usually cysts Gallbladder and biliary system: Mildly distended gallbladder. No pathologic biliary dilation Pancreas: Possible 0.9 cm pancreatic cystic lesion in the body. Spleen: Nonenlarged Adrenals: No discrete nodules Kidneys: Scattered cysts. Left upper pole partially cystic partially enhancing lesion measuring up to 4.3 cm. The left renal vein appears patent. Multiple nonobstructing renal calculi are present. No hydronephrosis Vessels and lymph nodes: Atherosclerotic calcifications of the aorta and its branches. The major mesenteric vessels appear patent. Abdominal aortic aneurysm with laminar thrombus, measuring up to 4.9 cm in AP dimension. No pathologic lymphadenopathy by size criteria. Bowel and peritoneum: No bowel obstruction. No pathologic ascites. Colonic diverticula. Moderate fecal loading. Body wall: Small fat containing right inguinal hernia. Rectus diastasis. Pelvis: Bladder is under distended limiting evaluation. Prostate is also not well assessed on this study. No gross abnormality Bones: Degenerative changes. Lumbosacral postsurgical changes. No aggressive appearing osseous abnormality. IMPRESSION: Abdominal aortic aneurysm up to 4.9 cm in AP dimension, with laminar thrombus. No contrast extravasation identified. Coronary calcifications are present. 4.3 cm left partially solid renal lesion is likely RCC. Hypervascular segment 8 liver lesion also present, possibly a hemangioma. 0.9 cm pancreatic body cystic lesion, possibly IPMN. Attention on follow-up for these findings, in the presence of probable renal carcinoma. Nonobstructing bilateral renal calculi. No significant discrepancy from the preliminary report. Dictated by: Khai Noyola M.D. on 08/26/2024 at 7:02 Approved by: Khai Noyola M.D. on 08/26/2024 at 7:13
[2024-08-26 08:28] LABS: Lactate (Lactic Acid) 1.8 mmol/L (0.7-2.1)
[2024-08-26] MEDS: SODIUM CHLORIDE 0.9% 1,000 ML 100 ML IV (08:46)
[2024-08-26] MEDS: PIPERACILLIN/TAZO 4.5 GM in SODIUM CHLORIDE 0.9% 100 ML IV (08:47)
[2024-08-26] MEDS: ONDANSETRON 4 MG/2 ML INJ IV (12:40)
[2024-08-26] MEDS: MORPHINE 4 MG/ML INJ 1 MG IV ×2 (12:40→16:04)
[2024-08-26] MEDS: PANTOPRAZOLE 40 MG VIAL IV (17:27)
--- NOTE | 2024-08-26 17:38 | PC.NURSE ---
Came to bedside, patient had awoken and was dry heaving, shaking and moaning. Patient is not clear with his symptoms but feels things are getting worse. Only able to describe pain in his abdomen as moderate at this time, states his guts are burning BP elevated to 184/133 on left arm. Notified Dr Garcia and he came to bedside to see patient. Order for increased pain medications at this time.
[2024-08-26] MEDS: HYDROMORPHONE 2 MG INJ IV (17:47)
--- NOTE | 2024-08-26 19:06 | DI.CT.S_ITS ---
PROCEDURE: CT ANGIO ABDOMEN PELVIS INDICATIONS: Mesenteric vein thrombosis TECHNIQUE: After the administration of intravenous contrast, 2.5 mm sections acquired from the diaphragm to the iliac crests. 10 mm maximum intensity projection (MIP) coronal and sagittal reformats were then performed. For radiation dose reduction, the following was used: automated exposure control. COMPARISON: [facility], CT, CT ANGIO CHEST ABDOMEN PELVIS, 08/26/2024, 4:18. [facility], CT, CT ABDOMEN PELVIS W CON, 08/25/2024, 18:41. FINDINGS: Image quality: Diagnostic Lower chest: Scattered basal atelectasis. Minimal lower lung bronchiectasis. Coronary calcifications. Small hiatal hernia Liver: Hypervascular lesion in segment 8 again seen Multiple cysts. Subcentimeter lesions are too small to characterize. Gallbladder and biliary system: Distended gallbladder. No biliary ductal dilation Pancreas: No ductal dilation Spleen: Nonenlarged Adrenals: No discrete nodules Kidneys: Multiple cysts. Partially solid enhancing lesion at the left upper pole again seen. Diffuse perinephric edematous fat stranding again seen, correlate urinalysis. Vessels and lymph nodes: The veins are not well evaluated on this arterial phase study. Abdominal aortic aneurysm again seen, measuring up to 4.9 cm in AP dimension. There is small degree of laminar thrombus. No pathologic lymphadenopathy by size criteria. [id number] atherosclerotic disease of the aorta and its branches. Bowel and peritoneum: No small bowel obstruction. Colonic diverticula. Moderate rectal stool ball. No drainable abscess or ascites. Likely chronic wall thickening of the distal colon again seen. Body wall: Mild rectus diastasis Pelvis: Bladder is unremarkable. Prostate is not well assessed on this study Bones: There are degenerative osseous changes. Lumbosacral fusion hardware. IMPRESSION: Abdominal aortic aneurysm again seen, measuring up to 4.9 cm in AP dimension. Small degree of laminar thrombus is present. No extravasation into the retroperitoneum identified. [id number] atherosclerotic disease of the aorta and its branches, without complete occlusion Please note the veins are not well assessed on this arterial phase study. Distended gallbladder. Correlate ultrasound if necessary. Many other findings above are unchanged from recent imaging, with follow-up recommendations on prior report. Dictated by: Khai Noyola M.D. on 08/26/2024 at 22:04 Approved by: Khai Noyola M.D. on 08/26/2024 at 22:10
[2024-08-26] MEDS: ENOXAPARIN 40 MG/0.4 ML SYRINGE 80 MG SUBCUT (22:59)
[2024-08-27] VITALS (12 sets, daily range): BP systolic 131–183; BP diastolic 93–122; PULSE 84–99; RESP 18–20; TEMP 36.4–36.7; O2SAT 95–98
[2024-08-27] MEDS: HYDROMORPHONE 2 MG INJ IV ×3 (04:40→21:14)
[2024-08-27 05:03] LABS: Add Manual Diff / Slide Review NO; Basophils Absolute Auto 100 /uL (0-100); Basophils Percent Auto 0.6 % (0-2); Eosinophils Absolute Auto 100 /uL (0-450); Eosinophils Percent Auto 0.5 % (2-4); Hematocrit 46.2 % (41-53); Hemoglobin 15.2 g/dL (13.5-17.5); Lymphocytes Absolute Auto 1600 /uL (1100-4500); Lymphocytes Percent Auto 11.6 % (25-40); Mean Corpuscular HGB Conc 32.8 % (30-36); Mean Corpuscular Hemoglobin 30.4 PG (26-34); Mean Corpuscular Volume 92.5 fL (80-100); Monocytes Absolute Auto 900 /uL (0-900); Monocytes Percent Auto 6.8 % (3-14); Neutrophils Absolute Auto 10800 /uL (1500-7000); Neutrophils Percent Auto 80.5 % (50-75); Platelet Count 299 X10^3/uL (150-400); Red Blood Cell Count 4.99 X10^6/uL (4.5-5.9); Red Cell Distribution Width 14.3 % (11.6-14.8); White Blood Cell Count 13.4 X10^3/uL (4.5-11.0)
[2024-08-27 05:18] LABS: Alanine Aminotransferase 16 IU/L (<50); Albumin 4.3 g/dL (3.5-5.0); Albumin Globulin Ratio 1.3 (1.0-2.8); Alkaline Phosphatase 69 U/L (38-126); Aspartate Aminotransferase 22 IU/L (17-59); BUN Creatinine Ratio 18.2 (6-22); Bilirubin Total 0.9 mg/dL (0.2-1.3); Blood Urea Nitrogen 16 mg/dL (9-20); Calcium 9.4 mg/dL (8.4-10.2); Carbon Dioxide 18 mmol/L (22-32); Chloride 108 mmol/L (98-107); Creatine Kinase 68 U/L (55-170); Estimated Glomerular Filt Rate > 60 mL/min (>60); Globulin 3.2 g/dL (1.7-4.1); Glucose 100 mg/dL (70-99); HEMOLYSIS < 15 (0-50); Potassium 4.1 mmol/L (3.4-5.1); Sodium 138 mmol/L (137-145); Total Protein 7.5 g/dL (6.3-8.2)
[2024-08-27 05:19] LABS: Lactate (Lactic Acid) 1.2 mmol/L (0.7-2.1)
[2024-08-27 05:29] LABS: Troponin I < 0.012 ng/mL (0.01-0.034)
[2024-08-27 06:21] LABS: Magnesium 1.7 mg/dL (1.6-2.3)
[2024-08-27] MEDS: PANTOPRAZOLE DR 40 MG TABLET PO (06:58)
[2024-08-27] MEDS: SODIUM CHLORIDE 0.9% 1,000 ML 100 ML IV ×2 (07:57→17:48)
--- NOTE | 2024-08-27 08:31 | PC.NURSE ---
Addendum entered by Mariposa Barber R.N. 08/27/24 18:18: [address] Eddie Garcia notified by this RN that DI is unable to conduct ordered MRI for pt until tomorrow. No new orders. Pt reports feeling better. Pt continues to have elevated BP 181/122. No new orders. Care ongoing. Addendum entered by Mariposa Barber R.N. 08/27/24 16:52: 1600 Pt reports needing to have a BM but unable to. Pt encouraged to have trips to toilet short and to not strain. Provider Dr. Eddie Garcia updated on pt's continued hypertension, pt's urge to defecate without success, and discomfort/pain in abdomen. Provider educated this RN on pathophysiology of aortic aneurysm. This RN expressed the pt's pain and inability to defecate. No new orders. Addendum entered by Mariposa Barber R.N. 08/27/24 12:02: 10:30, BP reassessed 168/110 automatic cuff, 165/105 manual, provider notified, no new orders. Care ongoing. Addendum entered by Mariposa Barber R.N. 08/27/24 08:49: 08:47 BP 168/110, provider notified. Expressed concern of untreated BP, no new orders from provider at this time. Care ongoing. Original Note: DAY SHIFT: Pt reports feeling seaty, pt is diaphoretic, BP 164/111, tremor present in pt's upper extremities, provider Dr. Eddie Garcia at bedside. No new orders received. 0828 BP now 181/116, pulse 99, pt reports off and on headache, continues to present as diaphoretic objectively and subjectively. Provider notified. Care ongoing.
[2024-08-27] MEDS: cloNIDine 0.1 MG TABLET PO ×2 (09:34→18:21)
[2024-08-27] MEDS: LOSARTAN 50 MG TABLET PO (09:34)
[2024-08-27] MEDS: ENOXAPARIN 40 MG/0.4 ML SYRINGE 80 MG SUBCUT (09:35)
[2024-08-27] MEDS: FLUTICASONE 120 SPRAY/16 GM SPRAY.SUSP NASAL (09:35)
[2024-08-27] MEDS: MAGNESIUM SULFATE 2 GM/50 ML PIGGYBACK IV (12:12)
--- NOTE | 2024-08-27 15:38 | PM.PN.1 ---
Subjective Subjective Date Patient Seen: 08/27/24 Interval history: Chief complaint: Severe abdominal pain episodic associated with peritoneal tenderness findings of enteritis on CT consider mesenteric vein thrombosis History of present illness: 73-year-old male 1 month ago had abdominal pain imaging demonstrated kidney stone was referred to Urology kidney stone was not present obstructing apparently passed however patient continued to have recurrent episodes of severe abdominal pain with recurrent workups and multiple images of the abdomen. These images demonstrated renal mass abdominal aortic aneurysm 4.89 cm. Patient was evaluated in the emergency department 08/25 with limited findings and improved symptoms with Bentyl ready to be discharged home and had a sudden escalation of severe abdominal pain accompanied by feeling feverish with rigors and chills. Findings on CT are as follows: 1. Fluid-filled loops of small bowel. This raises the possibility of an enteritis. No small bowel obstruction. No free fluid. 2. Mid left kidney mass measuring 5.2 cm. Consistent with renal cell carcinoma until proven otherwise. -Renal MRI may be helpful for further characterization. 3. Abdominal aortic aneurysm measuring 4.9 cm. Not present in 2013. -Recommend vascular surgery consultation. 4. Focus of heterogeneous enhancement at the right liver. This could represent a perfusion abnormality or hemangioma. Less likely metastatic disease. 5. Small nonobstructing kidney stones. White count 11.6 with 74% neutrophils Comprehensive metabolic unremarkable urinalysis normal Hospital course: Hospital course: 08/27: Pain seems to be significantly better after full dose Lovenox for highly suspected mesenteric vein thrombosis, unfortunately 2nd CT could not be timed correctly to visualize the mesenteric veins. Discussed with the patient MRI which he is very claustrophobic like a sedative prior to going cautioned to timing of this should not be given where an overlapping with his IV Dilaudid. Review of systems: No headache diplopia No chest pains palpitations shortness for breath wheezes No urinary symptoms No paresthesia paresis Physical exam: Hypotensive tachycardic flushed and tremulous elderly male in obvious severe pain HEENT unremarkable Unlabored respirations Abdomen distended nontender to deep palpation however significant pain with jiggling that is felt deep in his abdomen Extremities no edema Assessment and plan: Abdominal pain that seems to be mesenteric in character, findings on CT suggest enteritis consider viral or bacterial enteritis although patient has not had any diarrhea nausea vomiting. Also consider mesenteric vein thrombosis or arterial insufficiency of splanchnic perfusion Intravenous fluids blood cultures looking for Gram-negative empiric Zosyn Generous narcotic analgesia for suspected mesenteric vein thrombosis (pain out of proportion to findings) MRA of the abdomen looking for mesenteric vein thrombosis Empiric anticoagulation with enoxaparin full dose Incidental finding of abdominal aortic aneurysm without signs of dissection on CT imaging, doubt this is culprit but we will need to be followed by vascular surgery There does not appear to be radiographically detectable arterial insufficiency of mesenteric arteries Incidental finding of renal mass suspicious for renal cell carcinoma We will need follow-up with Urology DVT prophylaxis with SCDs only Code status: Full Code Blue Exam Vital Signs (past 8 hours): - 08/27/24 07:53 08/27/24 08:25 08/27/24 09:34 Temperature 97.8 F Pulse Rate 99 H 98 H 91 H Respiratory Rate 18 Blood Pressure 164/111 H 181/116 H 172/112 H Pulse Oximetry 96 Oxygen Flow Rate 0 08/27/24 09:34 08/27/24 10:14 08/27/24 10:31 Temperature Pulse Rate 91 H 92 H Respiratory Rate Blood Pressure 172/112 H 170/109 H 165/105 H Pulse Oximetry Oxygen Flow Rate 08/27/24 12:00 Temperature 97.8 F Pulse Rate 86 Respiratory Rate 18 Blood Pressure 145/103 H Pulse Oximetry 95 Oxygen Flow Rate 0 Oxygen Delivery Method Room Air Oxygen Flow Rate 0 Objective Labs 08/27/24 04:52 08/27/24 04:52 Labs: Laboratory Results - last 24 hr 08/27/24 04:52 WBC 13.4 H RBC 4.99 Hgb 15.2 Hct 46.2 MCV 92.5 MCH 30.4 MCHC 32.8 RDW 14.3 Plt Count 299 Neut % (Auto) 80.5 H Lymph % (Auto) 11.6 L [place] % (Auto) 6.8 Eos % (Auto) 0.5 L Baso % (Auto) 0.6 Neut # (Auto) 89738 H Lymph # (Auto) 1600 [place] # (Auto) 900 Eos # (Auto) 100 Baso # (Auto) 100 Sodium 138 Potassium 4.1 Chloride 108 H Carbon Dioxide 18 L BUN 16 Creatinine 0.88 Estimated GFR > 60 BUN/Creatinine Ratio 18.2 Glucose 100 H Lactate 1.2 Calcium 9.4 Magnesium 1.7 Total Bilirubin 0.9 AST 22 ALT 16 Alkaline Phosphatase 69 Total Creatine Kinase 68 Troponin I < 0.012 Total Protein 7.5 Albumin 4.3 Globulin 3.2 Albumin/Globulin Ratio 1.3 [facility] Medical History (Updated 08/26/24 @ 01:19 by Chirag Bryant MD) Hx of renal calculi Hx of gastroesophageal reflux (GERD) Hx of low back pain Hx of chronic arthritis Hx of sleep apnea History of high cholesterol Hx of primary hypertension Surgical History (Updated 03/13/24 @ 08:42 by Jeanine Skelton RN) History of ankle surgery (~2000) History of back surgery (~2021) Hx of hernia repair (~2015) Social History household members: spouse Smoking Status: Former smoker alcohol intake: current Assessment & Plan Time-Based Coding :: 35 minutes spent with patient and on the chart (including review of chart, obtaining history, exam, reviewing outside data, placing orders, documenting exam and treatment plan, and counseling patient). Quality VTE Deep Vein Thrombosis/Pulmonary Embolism Present on Admission: No
[2024-08-27] MEDS: GABAPENTIN 300 MG CAPSULE 600 MG PO (21:01)
[2024-08-27] MEDS: ENOXAPARIN 100 MG/ML SYRINGE 80 MG SUBCUT (21:01)
[2024-08-27] MEDS: TRAZODONE 50 MG TABLET 100 MG PO (21:02)
[2024-08-27] MEDS: TAMSULOSIN 0.4 MG CAPSULE PO (21:02)
[2024-08-27] MEDS: TIZANIDINE 4 MG TABLET PO (21:02)
[2024-08-27] MEDS: ONDANSETRON 4 MG/2 ML INJ IV (22:34)
[2024-08-28] VITALS (7 sets, daily range): BP systolic 120–148; BP diastolic 80–90; PULSE 82–95; RESP 12–20; TEMP 36.3–37.2; O2SAT 94–98
--- NOTE | 2024-08-28 07:35 | P.PN_ITS ---
Subjective Subjective Interval history: Chief complaint: Severe abdominal pain episodic associated with peritoneal tenderness findings of enteritis on CT consider mesenteric vein thrombosis History of present illness: 73-year-old male 1 month ago had abdominal pain imaging demonstrated kidney stone was referred to Urology kidney stone was not present obstructing apparently passed however patient continued to have recurrent episodes of severe abdominal pain with recurrent workups and multiple images of the abdomen. These images demonstrated renal mass abdominal aortic aneurysm 4.89 cm. Patient was evaluated in the emergency department 08/25 with limited findings and improved symptoms with Bentyl ready to be discharged home and had a sudden escalation of severe abdominal pain accompanied by feeling feverish with rigors and chills. Findings on CT are as follows: 1. Fluid-filled loops of small bowel. This raises the possibility of an enteritis. No small bowel obstruction. No free fluid. 2. Mid left kidney mass measuring 5.2 cm. Consistent with renal cell carcinoma until proven otherwise. -Renal MRI may be helpful for further characterization. 3. Abdominal aortic aneurysm measuring 4.9 cm. Not present in 2013. -Recommend vascular surgery consultation. 4. Focus of heterogeneous enhancement at the right liver. This could represent a perfusion abnormality or hemangioma. Less likely metastatic disease. 5. Small nonobstructing kidney stones. White count 11.6 with 74% neutrophils Comprehensive metabolic unremarkable urinalysis normal Hospital course: Hospital course: 08/27: Pain seems to be significantly better after full dose Lovenox for highly suspected mesenteric vein thrombosis, unfortunately 2nd CT could not be timed correctly to visualize the mesenteric veins. Discussed with the patient MRI which he is very claustrophobic like a sedative prior to going cautioned to timing of this should not be given where an overlapping with his IV Dilaudid. S: He was feeling better, no nausea. Less abdomen distention, he was had a lot of flatus. MRI was negative for mesenteric thrombosis. Exam Vital Signs (past 8 hours): - 08/28/24 00:00 08/28/24 04:00 Temperature 97.7 F 97.6 F Pulse Rate 85 83 Respiratory Rate 20 12 Blood Pressure 120/81 135/86 Pulse Oximetry 95 97 Oxygen Flow Rate 0 0 Oxygen Delivery Method Room Air Oxygen Flow Rate 0 Narrative Exam Narrative: NAD, alert and oriented. Fluent speech. Lungs are clear, normal rate and effort. Heart is regular, no murmur gallop or rub. Abdomen is soft, mildly distended, and hypertympanic. Extremities are free of edema. Objective Imaging MR Liver:: Radiologist's impression: Motion degraded MRI. Within this limitation, there is no occluding thrombus in the SMV or portal vein. No splenic vein occluding thrombus or left renal vein thrombus. Left renal enhancing partially cystic partially solid mass again seen. Abdominal aortic aneurysm again seen better assessed on CT angiogram. Other unchanged findings above. Labs 08/27/24 04:52 08/27/24 04:52 PFSH Medical History Hx of renal calculi Hx of gastroesophageal reflux (GERD) Hx of low back pain Hx of chronic arthritis Hx of sleep apnea History of high cholesterol Hx of primary hypertension Surgical History History of ankle surgery (~2000) History of back surgery (~2021) Hx of hernia repair (~2015) Social History household members: spouse Smoking Status: Former smoker alcohol intake: current Assessment & Plan Assessment & Plan narrative: Abdominal pain that seems to be mesenteric in character, findings on CT suggest enteritis consider viral or bacterial enteritis although patient has not had any diarrhea nausea vomiting. Also consider mesenteric vein thrombosis or arterial insufficiency of splanchnic perfusion * neg MR Liver, improved flatulence, stop heparin, stool softener. Incidental finding of abdominal aortic aneurysm without signs of dissection on CT imaging, doubt this is culprit but we will need to be followed by vascular surgery * There does not appear to be radiographically detectable arterial insufficiency of mesenteric arteries Incidental finding of renal mass suspicious for renal cell carcinoma * We will need follow-up with Urology SAMUEL: August 29 if improved. We will advance diet today. Anticipate close follow up with [facility] to address renal mass as well as abdomen aneurysm. DVT prophylaxis * with SCDs only Code status: * Full Code Blue Time-Based Coding :: [TOTAL MINUTES] spent with patient and on the chart (including review of chart, obtaining history, exam, reviewing outside data, placing orders, documenting exam and treatment plan, and counseling patient) on [DATE]. Quality VTE Deep Vein Thrombosis/Pulmonary Embolism Present on Admission: No
[2024-08-28] MEDS: PANTOPRAZOLE DR 40 MG TABLET PO (07:48)
[2024-08-28] MEDS: TIZANIDINE 4 MG TABLET PO (09:58)
[2024-08-28] MEDS: LOSARTAN 50 MG TABLET PO (09:58)
[2024-08-28] MEDS: ENOXAPARIN 100 MG/ML SYRINGE 80 MG SUBCUT ×2 (09:59→20:42)
[2024-08-28] MEDS: FLUTICASONE 120 SPRAY/16 GM SPRAY.SUSP NASAL (09:59)
[2024-08-28] MEDS: LORazepam 1 MG TABLET PO (10:20)
--- NOTE | 2024-08-28 11:02 | PC.NURSE ---
Patient given 1mg of po ativan, just went down to his MRI..
--- NOTE | 2024-08-28 14:11 | CM.DANOTE ---
Patient is a 73 yo male who was admitted INPT Status on 08/26/24 for Abd Pain. Pt has [employer] for insurance and his PCP is Nery Blood. EMR was reviewed. Per MD, pt with hx of kidney stone a month ago and was referred to Urologist and now returns with intractable abdominal pain and imaging showed possible renal mass. MRI of liver ordered for today. Pain better controlled. Possible d/c home today vs tomorrow pending results. Pt currently on clears and plan of advancing his diet. SW met bedside with pt and explained role and pt [place] but confirms he lives at home in [place] with his Alley and both are independent with ADLs. Pt typically uses a cane for ambulation and still drives and denies any hx of HH or SNF. Pt states his spouse does not really like to drive anymore so friend is transporting her to the hospital to visit and friend could provide transport for pt at d/c. Pt confirms his is his DPOA and preference is to discharge home when stable and does not anticipate any discharge needs at this time. Plan: SW to follow for advancing of pt's diet to confirm he can tolerate and further imaging results to determine possible mass and discharge needs. SHIKHA Bryan Discharge Planning/Care Management Advanced directive, confirm from FAMILY Start: 08/26/24 12:18 Freq: Q24H Status: Complete Protocol: Document 08/26/24 12:18 CLP (Rec: 08/26/24 13:04 CLP [id number]) Advance Directive, confirm on record Time 12:00 Person contacted patient Copy received No Document 08/27/24 12:18 AIME (Rec: 08/27/24 12:36 AIME Desktop) Advance Directive, confirm on record Time 12:00 Person contacted patient Copy received No Time 12:36 Person contacted patient Copy received No Document 08/28/24 00:59 AGW (Rec: 08/28/24 00:59 AGW [id number]) Advance Directive, confirm on record Time 12:00 Person contacted patient Copy received No Time 12:36 Person contacted patient Copy received No Advanced directive No available on record CM Discharge Assessment Start: 08/26/24 12:08 Freq: Status: Active Protocol: Document 08/28/24 14:08 BF (Rec: 08/28/24 14:11 BF [id number]) Discharge Planning Assessment Assigned Discharge SHIKHA Ghosh Power Distribution Engineer DPOA/Assigned spouse Alley Designee Name Contact Information [phone] Advance Directives? Yes Advance Directives No on File History Provided By Patient,Medical Record Has Patient been No admitted in last 30 days? Comment Last admission was for Endoscopy in Feb 2024 and went home Prior Living House Arrangements Household Members spouse Type of Drives own vehicle transporation used prior to admit Independent with ADL Yes 's Is patient alert and Yes oriented? Caregiver for No Another DME Already Rented / Cane Owned Barriers to No Discharge Discharge Plan Home Transportation Friend bringing in spouse to visit and can provide Arrangement transport home for pt when stable Referrals Initiated None needed Additional Comment Pending MRI imaging results Whiteboard Updated Yes in Patient Room with name and ext. # of [place] [employer] Review Status In Process Please Provide Date 08/28/24 Initial DC Assessment Was Performed Next Review Type Continued Stay Review
--- NOTE | 2024-08-28 15:36 | DI.MRI.S_ITS ---
PROCEDURE: MR ABDOMEN LIVER PROTOCOL INDICATIONS: Evaluate for mesenteric vein thrombosis TECHNIQUE: Coronal HASTE, axial 2D FLASH in- and [id number]; axial breath-hold T2 FSE. Dynamic axial VIBE during the administration of contrast; post-contrast coronal VIBE or 2D FLASH with fat saturation from the hepatic dome to the iliac crests. Optional diffusion weighted imaging and ADC may be performed. COMPARISON: [facility], CT, CT ANGIO ABDOMEN PELVIS, 08/26/2024, 21:06. [facility], CT, CT ABDOMEN PELVIS W CON, 08/25/2024, 18:41. FINDINGS: Image quality: Motion degraded Lower chest: Lung bases appear unremarkable. Lungs are not well evaluated on MRI. Liver: Scattered cysts. No definite suspicious focal lesion Again seen in the segment 8 hypervascular lesion with high T2 signal probably hemangioma Gallbladder and biliary system: Mildly distended gallbladder. No biliary ductal dilation Pancreas: No ductal dilation. Spleen: Nonenlarged Adrenals: No discrete nodules Kidneys: Renal cysts. No hydronephrosis. Partially solid partially cystic enhancing left renal mass again seen measuring up to 4.4 cm. Vessels and lymph nodes: Within the limitations of motion artifact, there is no large occluding thrombus in the SMV or splenic vein. The main portal vein appears patent. The left renal vein appears patent. Abdominal aortic aneurysm with laminar thrombus again seen, better assessed on CT angiogram. No pathologic lymph nodes by size criteria. Bowel and peritoneum: No drainable abscess or ascites. No small bowel obstruction. Body wall: Unremarkable Bones: Lower lumbar fusion hardware, not well evaluated on this study. IMPRESSION: Motion degraded MRI. Within this limitation, there is no occluding thrombus in the SMV or portal vein. No splenic vein occluding thrombus or left renal vein thrombus. Left renal enhancing partially cystic partially solid mass again seen. Abdominal aortic aneurysm again seen better assessed on CT angiogram. Other unchanged findings above. Dictated by: Khai Noyola M.D. on 08/28/2024 at 12:07 Approved by: Khai Noyola M.D. on 08/28/2024 at 12:13
--- NOTE | 2024-08-28 16:35 | DIET.CONS ---
Dietary Consultation Note Admission Date: 08/26/2024 07:25 Assessment: 73 y M presenting with abd pain. Dietitian screened for low MNA. Met with pt and at bedside. Reports 1 month of decreased appetite due to pain. Usually has 3 meals per day, has been doing 2 small meals. Pt reports appetite now. Diet was switched to regular by hospitalist. NFPE completed with no significant findings. Assessed temples, buccal and orbital fat pads, clavicle region and interosseous. Ht: 172.72 cm Wt: 81.647 kg BMI: 27.3 UBW: 03/13/24 74.843 kg, pt reports UBW around 180-190 lb (81.8-86.3 kg) Last BM: 08/25/24 (08/26/24 12:08) MNA: 8 Javier Score: 19 Diet: 08/28/24 Dinner General (Regular) Diet Diet Modifications: Food Texture: Level 7 - Regular Liquid Consistency: Level 0 - Thin Nutrition Percent Meal Consumed 25% 08/27/24 18:43 Percent Meal Consumed 50% 08/27/24 14:00 Percent Meal Consumed 0% 08/26/24 18:00 Labs: RBC 4.99 X10^6/uL (4.5-5.9) 08/27/24 04:52 Hgb 15.2 g/dL (13.5-17.5) 08/27/24 04:52 Hct 46.2 % (41-53) 08/27/24 04:52 Creatinine 0.88 mg/dL (0.66-1.25) 08/27/24 04:52 Lactate 1.2 mmol/L (0.7-2.1) 08/27/24 04:52 Nutrition Diagnosis: Inadequate oral intake r/t abd pain causing decreased appetite aeb <75% of estimated energy needs for 1 month Interventions: Pt diet advance per hospitalist, pt reports good appetite currently, will monitor PO intakes Monitoring/Evaluations: PO intakes Electronically Signed by: Micki Velasquez 08/28/24 16:35 Clinical Dietitian [address] [id number]
[2024-08-28] MEDS: polyethylene glycoL 3350 17 GM POWD.PACK PO (20:36)
[2024-08-28] MEDS: GABAPENTIN 300 MG CAPSULE 600 MG PO (20:39)
[2024-08-28] MEDS: TRAZODONE 50 MG TABLET 100 MG PO (20:39)
[2024-08-28] MEDS: TAMSULOSIN 0.4 MG CAPSULE PO (20:40)
[2024-08-28 22:41] LABS: Adenovirus F 40/41 Not Detected (Not Detect); Astrovirus Not Detected (Not Detect); Campylobacter Not Detected (Not Detect); Clostridium difficile toxin AB Not Detected (Not Detect); Cryptosporidium Not Detected (Not Detect); Cyclospora cayetanensis Not Detected (Not Detect); Entamoeba histolytica Not Detected (Not Detect); Enteroaggregative E.coli Not Detected (Not Detect); Enteropathogenic E.coli Not Detected (Not Detect); Enterotoxigenic E.coli It/st Not Detected (Not Detect); Giardia lamblia Not Detected (Not Detect); Norovirus GI/GII Not Detected (Not Detect); Plesiomonsa shigelloides Not Detected (Not Detect); Rotavirus A Not Detected (Not Detect); Salmonella Not Detected (Not Detect); Sapovirus Not Detected (Not Detect); Shiga-like toxin-prod E.coli Not Detected (Not Detect); Shigella/Enteroinvasive E.coli Not Detected (Not Detect); Vibrio Not Detected (Not Detect); Vibrio cholerae Not Detected (Not Detect); Yersinia enterocolitica Not Detected (Not Detect)
[2024-08-29 04:40] VITALS: BP 138/98; PULSE 91; RESP 17; TEMP 36.8; O2SAT 97
[2024-08-29] MEDS: PANTOPRAZOLE DR 40 MG TABLET PO (07:03)
[2024-08-29 08:39] VITALS: BP 142/93; PULSE 102; RESP 16; TEMP 36.4; O2SAT 94
--- NOTE | 2024-08-29 08:43 | PC.NURSE ---
Assess- Patient is alert and oriented x4, he denies pain. HR regular, denies chest pain. He is eating breakfast and lying comfortably in bed.
[2024-08-29] MEDS: LOSARTAN 50 MG TABLET PO (08:53)
[2024-08-29] MEDS: ENOXAPARIN 100 MG/ML SYRINGE 80 MG SUBCUT (08:53)
[2024-08-29] MEDS: TIZANIDINE 4 MG TABLET PO (08:53)
[2024-08-29] MEDS: FLUTICASONE 120 SPRAY/16 GM SPRAY.SUSP NASAL (08:54)
--- NOTE | 2024-08-29 10:29 | PM.DS.1 ---
History of Present Illness History of Present Illness Chief complaint: Severe abdominal pain mesenteric signs Narrative: Chief complaint: Severe abdominal pain episodic associated with peritoneal tenderness findings of enteritis on CT consider mesenteric vein thrombosis History of present illness: 73-year-old male 1 month ago had abdominal pain imaging demonstrated kidney stone was referred to Urology kidney stone was not present obstructing apparently passed however patient continued to have recurrent episodes of severe abdominal pain with recurrent workups and multiple images of the abdomen. These images demonstrated renal mass abdominal aortic aneurysm 4.89 cm. Patient was evaluated in the emergency department 08/25 with limited findings and improved symptoms with Bentyl ready to be discharged home and had a sudden escalation of severe abdominal pain accompanied by feeling feverish with rigors and chills. Findings on CT are as follows: 1. Fluid-filled loops of small bowel. This raises the possibility of an enteritis. No small bowel obstruction. No free fluid. 2. Mid left kidney mass measuring 5.2 cm. Consistent with renal cell carcinoma until proven otherwise. -Renal MRI may be helpful for further characterization. 3. Abdominal aortic aneurysm measuring 4.9 cm. Not present in 2013. -Recommend vascular surgery consultation. 4. Focus of heterogeneous enhancement at the right liver. This could represent a perfusion abnormality or hemangioma. Less likely metastatic disease. 5. Small nonobstructing kidney stones. White count 11.6 with 74% neutrophils Comprehensive metabolic unremarkable urinalysis normal Discharge Providers Provider Date of admission: 08/26/24 07:25 Discharge Date: 08/29/24 Primary care physician: Nery Blood MD Consults: None. Discharge provider: Baldemar Argueta MD Summary Hospital Course Discharge Diagnosis: Abdominal pain that seems to be mesenteric in character, findings on CT suggest enteritis consider viral or bacterial enteritis although patient has not had any diarrhea nausea vomiting. Also consider mesenteric vein thrombosis or arterial insufficiency of splanchnic perfusion neg MR Liver, improved flatulence, stop heparin, stool softener.Incidental finding of abdominal aortic aneurysm without signs of dissection on CT imaging, doubt this is culprit but we will need to be followed by vascular surgery Incidental findin.0 cm AAA 5.2 cm Left renal mass. Chronic stable conditions: IBLL HTN HLD GERD Nephrolithiasis Hospital Course: He was admitted with abdominal pain. He was treated symptomatically and received a bowel program. He was initially heparinized for concern for mesenteric thrombosis. An MR study ruled out evidence of thrombosis. The patient improved and had multiple bowel movements. Ultimately he felt at or near baseline and was agreeable to discharge home. He did have incidental finding of a AAA at 5 cm as well as a left renal mass. He does receive most of his care at [facility] and his started to follow up with a appointment with primary care so that he can have referrals for vascular surgery and Urology. He will continue a bowel program at home and follow up with his primary care at [facility] next week. Status at Discharge Cognitive/behavioral status at discharge: oriented Functional status at discharge: independent ambulation Overall status at discharge: patient is back to baseline Time Spent with Patient Time spent: Greater than 30 minutes Exam Vital Signs (past 8 hours): - 08/29/24 04:40 08/29/24 08:39 Temperature 98.2 F 97.5 F L Pulse Rate 91 H 102 H Respiratory Rate 17 16 Blood Pressure 138/98 H 142/93 H Pulse Oximetry 97 94 Oxygen Flow Rate 0 Oxygen Delivery Method Room Air Oxygen Flow Rate 0 Narrative Exam Narrative: NAD, alert and oriented. Fluent speech. Lungs are clear, normal rate and effort. Heart is regular, no murmur gallop or rub. Abdomen is soft, mildly distended and non-tender. Extremities are free of edema. Objective ECG Impression: Intervals [place] Rate: 95 P: 49 OK: 168 QRS: 59 QRSD: 72 T: 43 QT: 346 QTc: 434 Interpretive Statements Normal sinus rhythm Imaging Multiple studies:: Radiologist's impression: Liver MRI: Motion degraded MRI. Within this limitation, there is no occluding thrombus in the SMV or portal vein. No splenic vein occluding thrombus or left renal vein thrombus. Left renal enhancing partially cystic partially solid mass again seen. Abdominal aortic aneurysm again seen better assessed on CT angiogram. Other unchanged findings above. Abdomen and pelvis CTA: Lower chest: Scattered basal atelectasis. Minimal lower lung bronchiectasis. Coronary calcifications. Small hiatal hernia Liver: Hypervascular lesion in segment 8 again seen Multiple cysts. Subcentimeter lesions are too small to characterize. Gallbladder and biliary system: Distended gallbladder. No biliary ductal dilation Pancreas: No ductal dilation Spleen: Nonenlarged Adrenals: No discrete nodules Kidneys: Multiple cysts. Partially solid enhancing lesion at the left upper pole again seen. Diffuse perinephric edematous fat stranding again seen, correlate urinalysis. Vessels and lymph nodes: The veins are not well evaluated on this arterial phase study. Abdominal aortic aneurysm again seen, measuring up to 4.9 cm in AP dimension. There is small degree of laminar thrombus. No pathologic lymphadenopathy by size criteria. Fkau-qc-[id number] atherosclerotic disease of the aorta and its branches. Bowel and peritoneum: No small bowel obstruction. Colonic diverticula. Moderate rectal stool ball. No drainable abscess or ascites. Likely chronic wall thickening of the distal colon again seen. Body wall: Mild rectus diastasis Pelvis: Bladder is unremarkable. Prostate is not well assessed on this study Bones: There are degenerative osseous changes. Lumbosacral fusion hardware. IMPRESSION: Abdominal aortic aneurysm again seen, measuring up to 4.9 cm in AP dimension. Small degree of laminar thrombus is present. No extravasation into the retroperitoneum identified. Foza-hy-mnrodjhk atherosclerotic disease of the aorta and its branches, without complete occlusion Please note the veins are not well assessed on this arterial phase study. Distended gallbladder. Correlate ultrasound if necessary. Many other findings above are unchanged from recent imaging, with follow-up recommendations on prior report. Chest abdomen pelvis CTA: Abdomen pelvis CT: Labs 08/27/24 04:52 08/27/24 04:52 Labs: Laboratory Results - last 24 hr 08/28/24 20:30 Stl C. cayetanensis PCR Not detected Stool Rotavirus (PCR) Not detected Stool Adenovirus (PCR) Not detected Stool Astrovirus (PCR) Not detected Stool Cryptosporidium PCR Not detected Stl E.coli Shiga Tox PCR Not detected St Sh/Enteroin Ecoli PCR Not detected Stl Enterotoxigenic E PCR Not detected Stool EPEC (PCR) Not detected Stl E. histolytica PCR Not detected Stool Giardia Lamblia PCR Not detected Stool Sapovirus (PCR) Not detected Stl P. shigelloides PCR Not detected St Y.enterocolitica PCR Not detected Stool Vibrio (PCR) Not detected Stl Vibrio cholerae PCR Not detected Stl Enteroaggr Ecoli PCR Not detected Stl Norovirus GI/GII PCR Not detected Campylobacter (PCR) Not detected C. difficile Tox (PCR) Not detected Salmonella (PCR) Not detected PFSH Medical History Hx of renal calculi Hx of gastroesophageal reflux (GERD) Hx of low back pain Hx of chronic arthritis Hx of sleep apnea History of high cholesterol Hx of primary hypertension Surgical History History of ankle surgery (~2000) History of back surgery (~2021) Hx of hernia repair (~2015) Social History household members: spouse Smoking Status: Former smoker alcohol intake: current Discharge Assessment & Plan Assessment and Plan Assessment: Abdominal pain of unclear etiology which improved with a bowel program. Incidental findings of AAA, 5 cm and a left renal mass at 5 cm. Plan of Treatment: Discharge home with a bowel program. He was going to see [facility] primary care next week for referral to urology and vascular surgery. He does understand the importance and urgency of these follow up. Discharge Plan Discharge Plan Patient Disposition: Home Provider Discharge Comment: Stable for discharge home, close follow up with [facility] for renal mass and aortic aneurysm is recommended. Discharge orders & Medications Prescriptions: Continued losartan 50 mg Tablet 50 mg PO DAILY atorvastatin 40 mg Tablet 40 mg PO DAILY methocarbamol 500 mg tablet 500 - 1,000 mg PO Q6H PRN (Reason: Muscle Spasm) tizanidine 2 mg tablet 4 mg PO BID tamsulosin 0.4 mg Capsule 0.4 mg PO BEDTIME Patient Comments: sometimes takes an additional during the day trazodone 100 mg tablet 100 mg PO ONCE PM PRN (Reason: insomnia) pantoprazole 40 mg Tablet,Delayed Release (Dr/Ec) 40 mg PO DAILY gabapentin 300 mg capsule 600 mg PO BEDTIME Patient Comments: takes an additional 300mg PO BID PRN fluticasone propionate 50 mcg/actuation [place],Suspension 1 spray INTRANASAL DAILY Rx Instructions: administer into each nostril acetaminophen 500 mg Capsule 1,000 mg PO QID PRN (Reason: Pain (Scale Score 1-3)) Follow up/Referrals: Nery Blood MD [Primary Care Provider, Internal Medicine] Activity Restrictions/Additional Instructions: Recent evaluations emergency department at [facility] for kidney stones, and eventual attempted surgical removal of the stone, stone apparently was not located and was felt to have passed. Recent CT scans at [facility] had shown presence of abdominal aortic aneurysm, which should be followed up with vascular surgery as an outpatient. You had more abdominal pain today with nausea and vomiting. CT scanning today showed aortic aneurysm, similar dimensions reported from CT scan reports from [facility]. This can be followed up as an outpatient for now, ask your regular doctor to refer you to vascular surgeon for consultation. CT today showed enteritis changes of your bowel. You had significant crampy abdominal discomfort. Oral Bentyl was given as an antispasmodic, which might have helped. Antinausea medications also were given which might have helped. Eventually you had improvement of your symptoms and were ambulatory to the bathroom, able to take oral fluids. We will discharge home on some further oral Bentyl to take if needed for the next few days, and antinausea medications to use as needed as well. CT findings of aortic abdominal aneurysm, seems stable by size dimensions on reports today compared to reports from [facility]. Follow up with vascular surgeon as an outpatient, requests referral from your regular provider in follow up. Regarding your kidney stones, follow up with your urologist as planned. Regarding mass on kidney noted on CT scanning, follow up with your urologist, possible biopsy, versus other imaging modalities. Follow up as an outpatient for now. Return earlier to this/nearest emergency department for any change worsening symptoms or any concerns prior. Skin/Wound/Dressing Care Report to your healthcare provider any signs of infection, such as:: chills, fever, night sweats and increased pain Visit Report/Discharge Packet Instructions: DI for Constipation, DI for Aortic Aneurysm Stand Alone Forms: Patient Portal/API, Patient Portal/API/Survey Discharge Data Primary Care Provider: Nery Blood VTE Deep Vein Thrombosis/Pulmonary Embolism Present on Admission: No
--- NOTE | 2024-08-29 10:30 | CM.DPNOTE ---
DCP Continued: Reviewed EMR and team rounds for pt?s medical status. Per hospitalist, pt should be cleared for discharge today, 08/29; close follow up with [facility] for urology due to incidental finding of renal mass. No discharge needs identified at this time, independent at baseline. Plan: Anticipating dc home with family to transport on 08/29 or when medically cleared. CM Team will continue to follow for coordination of discharge plans. ARNIE CroweSW
== END 2024-08-29 12:15 | disposition home or self-care (01) | DRG 392 ==
LOC: ED 08-26 07:07 → AC 08-26 08:10
PROVIDERS: Internal Medicine; Student in an Organized Health Care Education/Training Program; Admitting Provider Internal Medicine; Emergency Provider Emergency Medicine; Family Provider Urology; PCP Internal Medicine; Referring Provider Emergency Medicine; Visit Provider Internal Medicine
DX: A08.4 Viral intestinal infection, unspecified (principal); A04.9 Bacterial intestinal infection, unspecified; I71.40 Abdominal aortic aneurysm, without rupture, unspecified; N28.89 Other specified disorders of kidney and ureter; I77.1 Stricture of artery; I10 Essential (primary) hypertension; E78.00 Pure hypercholesterolemia, unspecified; K21.9 Gastro-esophageal reflux disease without esophagitis; Z87.891 Personal history of nicotine dependence
CPT/HCPCS: 36415; 71275; 74174; 74177; 74183; 80053; 81001; 82550; 83605; 83690; 83735; 84443; 84484; 85025; 86850; 86900; 86901; 87040; 87507; 93005; 96361; 96365; 96375; 96376; 99284; 99285; A9579; J1171; J1650; J2270; J2405; J2470; J2543; J3475; Q9967

== ENCOUNTER → 2024-10-09 07:42 | Outpatient (CLI) | payer OTHER, SELFPAY ==
[2024-08-26 12:08] VITALS: BMI 27.3
--- NOTE | 2024-10-09 07:43 | DI.NM.S_ITS ---
PROCEDURE: NM RENAL FLOW AND FUNCTION RADIOPHARMACEUTICAL: 10.3 mCi Tc-99m MAG3 IV. INDICATIONS: RENAL MASS TECHNIQUE: The patient was hydrated orally before the examination was begun. After intravenous administration of Tc-99m MAG3, posterior abdominal radionuclide angiogram and sequential (1 minute per frame) renal images were obtained. A time-activity curve for each kidney was generated and analyzed. COMPARISON: None. FINDINGS: Perfusion: There is normal vascular perfusion to both kidneys. Morphology: Kidneys are normal in shape and size. There are no central photopenic regions to suggest dilated collecting systems. The ureters and bladder are visualized, and appear normal in morphology. Function: Both kidneys demonstrate normal cortical tracer uptake, with [id number] activity ranging from 3 to 5 minutes. The right kidney contributes 41.9 % of total renal function. The left kidney contributes 58.1 % of total renal function. There is normal tracer excretion by both kidneys, and subsequent clearance of activity from both renal collecting systems. IMPRESSION: Split function: Right side: 42%. Left side: 58%. Dictated by: Mohit Sanchez M.D. on 10/09/2024 at 12:43 Approved by: Mohit Sanchez M.D. on 10/09/2024 at 12:45
== END ==
LOC: NUCM 07:43
PROVIDERS: Family Provider Urology; PCP Internal Medicine; Referring Provider Internal Medicine; Visit Provider Urology
DX: N28.89 Other specified disorders of kidney and ureter (principal)
CPT/HCPCS: 78708; A9562